=== PATIENT | female | born 1995 | race Caucasian/White ===

== ENCOUNTER 2025-06-29 20:29 | Emergency (ER) | payer OTHER, SELFPAY ==
--- OUTSIDE RECORDS SUMMARY | 2024-05-31 05:15 | XMS_ITS ---
Author Organization [facility] Address [address] [place] [address] Care Team Providers Care Police Lieutenant Patrol Name Role Phone Dominga SIEGEL, Hermila Primary Care Provider Un available Alley Preciado Unavailable [phone] Encounters Encounter Location Date Provider Diagnosis [address] [address] 05/31/2024 Alley Preciado Plan Of Treatment No Information Progress Notes * Modesta MAZA SDOB:1995 (29 yo F)Acc No.[id number]:05/31/2024 Progress Notes Patient: Modesta BEAVER Provider: Yareli Preciado DPM :1995 A ge:28 Y S ex:Female Date:05/31/2024 Address:[address] [place], [place] [id number] Pcp:Hermila Orr MD Subjective: * Chief Complaints: * * Medical History: Objective: * Vitals: Assessment: Plan: * Treatment: * Images: * The named appointment provid er may or may not be the originator of this progress note, and it is not deemed complete until electronically signed by the appointment provider. Sign off status: Pending * Provider: Yareli Preciado DPM Date: 07/31/2023 Generated for Leonardai kalee/Fazoltang/eTransmitting on: 08/31/2024 02:34 AM EST
--- OUTSIDE RECORDS SUMMARY | 2024-11-15 06:30 | XMS_ITS ---
Author Organization [facility] [address] Address [address] [place] [address] Care Team Providers Care Director Auto Name Role Phone Hermila Orr Primary Care Provider DENISE Landin Unavailable [phone] Encounters Encounter Location Date Provider Diagnosis [facility] [address] [address] 11/15/2024 DENISE SADLER Plan Of Treatment No Information Progress Notes * RAULITO GARCIADOB:1995 (29 yo F)Acc No.[id number]:11/15/2024 Patient: RAULITO BEAVER Provider: Brunilda SADLER :1995 A ge:29 Y S ex:Female Date:11/15/2024 Address:[address] [place], [place] [id number] Pcp:Hermila Orr * Electronic signature of BRAINA SADLER PA-C, [id number] on 06/30/2025 at 02:34 AM EST Sign off status: Pending * Provider: Brunilda SADLER Date: 0 11/15/2024 Generated for Leonardai kalee/Fahilda/eTransmitting on: 1 08/31/2024 02:34 AM EST
--- OUTSIDE RECORDS SUMMARY | 2024-11-22 06:30 | XMS_ITS ---
Author Organization [facility] [address] Address [address] [place] [address] Care Team Providers Care Educational Psychology Professor Name Role Phone Hermila Orr Primary Care Provider DENISE Landin Unavailable [phone] Encounters Encounter Location Date Provider Diagnosis [facility] [address] [address] 11/22/2024 DENISE SADLER Plan Of Treatment No Information Progress Notes * RAULITO GARCIADOB:1995 (29 yo F)Acc No.[id number]:11/22/2024 Patient: RAULITO BEAVER Provider: Brunilda SADLER :1995 A ge:29 Y S ex:Female Date:11/22/2024 Address:[address] [place], [place] [id number] Pcp:Hermila Orr * Electronic signature of BRIANA SADLER PA-C, [id number] on 06/30/2025 at 02:35 AM EST Sign off status: Pending * Provider: Brunilda SADLER Date: 0 11/22/2024 Generated for Aris granda/Ramón/eTransmitting on: 1 08/31/2024 02:35 AM EST
--- NOTE | ~2025-06-29 | XR_ITS ---
CLINICAL HISTORY: chest pain 2 view chest x-ray Comparison: None provided Findings: The lungs are clear. Heart size is normal. No acute fracture. IMPRESSION: 1. No acute findings. This document has been electronically signed by: Shady Curiel MD on 06/29/2025 21:21:30
--- NOTE | 2025-06-29 20:30 | ECG_ITS ---
Test Reason : chest pain Blood Pressure : */* mmHG Vent. Rate : 98 BPM Atrial Rate : 98 BPM P-R Int : 170 ms QRS Dur : 88 ms QT Int : 358 ms P-R-T Axes : 50 19 52 degrees QTcB Int : 457 ms Normal sinus rhythm Cannot rule out Anterior infarct , age undetermined Abnormal ECG No previous ECGs available Referred By: Generic ED Physician Electronically Signed By: Emmett Childress
[2025-06-29 20:44] VITALS: BP 132/82; PULSE 94; RESP 16; TEMP 36.8; O2SAT 97; BMI 43.1
--- NOTE | 2025-06-29 20:48 | ED.GENADULT ---
HPI - General Adult General Chief complaint: Chest Pain Stated complaint: chest pain Time Seen by Provider: 06/30/25 02:25 Source: patient Mode of arrival: ambulatory Limitations: no limitations History of Present Illness ED Provider: Dr. 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 The pain is described as a burning sensation that begins in the chest, radiates to the upper abdomen and occasionally to the back, reminiscent of prior GERD flares but ?feels different? and more intense. Symptoms have progressively worsened over the past couple of weeks. - Associated symptoms: nausea (without emesis), dry non-productive cough, sensation of throat ?stuck? or airway closing, intermittent choking episodes that trigger asthma symptoms, generalized malaise. - Denies: vomiting, fever, sputum production. - Triggers/aggravating factors: oral intake (cannot tolerate food without triggering symptoms), stress, recent oral prednisone course started today for asthma. - Relieving factors: temporary relief with GI cocktail in prior ED visit; minimal/no relief with current home antacid regimen (famotidine, sucralfate, omeprazole). - Medication history: Long-standing use of famotidine, sucralfate, and omeprazole; discontinued GLP-1 agonist due to worsening reflux; started prednisone today; on steroid inhalers for asthma control. - Recent care: ED visit at [facility] ?a few days ago? (GI cocktail, no improvement). GI follow-up scheduled for August; patient reports urgency due to daily choking episodes. - Social history: Remote smoking history (?have been a smoker, not really a smoker? currently). Denies NSAID use for pain. Related Data Previous Rx's ?Medication ?Instructions ?Recorded cyclobenzaprine 10 mg tablet 10 mg PO TID #10 tabs 06/30/25 esomeprazole magnesium 20 mg 20 mg PO DAILY 30 days #30 caps 06/30/25 capsule,delayed release (Nexium) pantoprazole 20 mg tablet,delayed 20 mg PO DAILY #30 tabs 06/30/25 release (Protonix) Allergies Allergy/AdvReac Type Severity Reaction Status Date / Time amoxicillin Allergy Rash Verified 06/29/25 20:49 Review of Systems Review of Systems: as per HPI, full review of systems performed and negative but for the above mentioned pertinent positives and negatives. [facility] Social History Social History Advance Directives: No Advance Directives Information Provided: No Do you have a plan to hurt others: No Plan Physical Exam ED Exam Exam: GENERAL: Ill-Appearing, appears uncomfortable. SKIN: Normal skin color for ethnicity, warm, dry, no rashes noted. HEENT:? Normocephalic, atraumatic, no stridor, dry mucous membranes, dentition intact, EOMI. NECK: Soft, supple, full ROM, midline structures nontender, no step-offs, no deformities, no lymphadenopathy. CHEST: Heart regular rhythm, no murmurs, symmetric chest rise and fall. PULMONARY: Clear to auscultation bilaterally, diminished at the bases, no labored breathing, no wheezes/rhales/rhonchi. ABDOMINAL: Soft, nondistended, epigastric tenderness to palpation without rebound or guarding, positive bowel sounds in all quadrants. : Deferred. MUSCULOSKELETAL: Normal tone, full range of motion, no deformities, no peripheral edema. NEURO: Alert and oriented x3, CN II through XII intact, equal strength and sensation bilateral upper and lower extremities, no focal neurologic deficits.? PSYCHIATRIC: Flat affect, fluid speech, good eye contact and appropriate demeanor. Vital Signs: Vital Signs - 24 hr 06/29/25 20:44 06/30/25 02:37 Temperature 98.2 F 97.6 F Pulse Rate 94 70 Respiratory Rate 16 16 Blood Pressure 132/82 112/70 Pulse Oximetry 97 97 Oxygen Delivery Method Room Air Room Air BMI result Body Mass Index 43.1 Course Course Course Narrative: This is a Rapid Medical Examination (RME) performed by Krupa Will PA-C in triage. Full HPI, ROS, assessment and treatment plan per primary provider in the Main ED. Hx: 29 yo F hx GERD here for eval of worsening acid reflux with chest pain x3 days. on multiple GI meds. states her acid reflux becomes so bad it triggers her asthma and she feels like she cannot breath. feels as though an elephant is sitting on her chest. seen at ED last week - given GI cocktail without improvement. seen at today - advised to come here. Plan: labs, EKG, cxr Medications Administered Discontinued Medications Generic Name Dose Route Start Last Admin Trade Name Annel PRN Reason Stop Dose Admin Al Hydroxide/Mg Hydroxide 30 ml 06/30/25 03:42 06/30/25 03:58 Magnesium Hydrox/Alum Hydrox 30 Ml Oral.Susp PO 06/30/25 03:43 30 ml ONCE ONE Administration Lidocaine HCl 15 ml 06/30/25 03:42 06/30/25 03:58 Lidocaine Hcl Viscous 2 % 15 Ml Solution MUCOUS MEM 06/30/25 03:43 15 ml ONCE ONE Administration Medical Decision Making Medical Decision Making [facility] Narrative: 29-year-old female with complex history of GERD, asthma, and multiple autoimmune disorders presenting with refractory epigastric/chest burning and asthma symptoms likely triggered by uncontrolled acid reflux. Work-up today reassuring for no acute cardiopulmonary emergency (normal vitals, labs, EKG; lungs clear). The primary issues and plans are outlined below. Problem #1: GERD exacerbation / epigastric pain Assessment: One-week history of severe burning epigastric/chest pain refractory to long-standing famotidine, omeprazole, and sucralfate. Symptoms worsened by recent oral steroid. Prior EGD 6 months ago; considering need for repeat endoscopy given progressive symptoms. Plan: - Administer single dose IV/PO Protonix in ED (formulary dependent). - Discontinue omeprazole; prescribe Protonix (pantoprazole) 40 mg PO daily as outpatient trial. - Continue famotidine and sucralfate; reinforce dosing schedule (sucralfate up to 4?/day before meals, separate by >= h from other antacids). - OTC options: trial Maalox or Pepto Bismol for breakthrough symptoms; caution not to take concurrently with sucralfate. - Avoid NSAIDs. - Discussed role of stress; encouraged stress-reduction strategies/therapy. - Follow-up: maintain scheduled GI appointment ([facility] in August); advised to seek sooner evaluation if worsening, vomiting blood, melena, or inability to tolerate PO. Problem #2: Asthma / shortness of breath Assessment: Asthma symptoms currently mild; triggered by reflux. Lungs clear; patient denies active exacerbation. Plan: - Hold oral prednisone started today; benefits outweighed by exacerbation of GERD. - Continue inhaled steroid and other home asthma medications as previously prescribed. - Monitor respiratory status; return for worsening dyspnea, wheeze, or peak flow decline. Problem #3: Medication counseling / polypharmacy - Reviewed timing and separation of antacids and PPIs with patient for optimal efficacy. - Discussed risks of prolonged steroid use and NSAID use on gastric mucosa. - Provided prescription for short-acting muscle relaxer for nocturnal discomfort (patient to avoid use until home due to drowsiness and self-transport tonight). 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 - Encouraged continued routine outpatient follow-up with primary care and specialists. Disposition - Stable vital signs. - Discharged home with return precautions for chest pain, hematemesis, melena, progressive dyspnea, or uncontrolled pain. - Discharge prescriptions sent to [facility]. Differential Diagnosis Differential Diagnoses: The differential diagnosis associated with the presentation includes (as above) Admission/Observation Consideration of admission/observation: Escalation of care including admission/observation considered Lab Data MDM Lab Attestation statement: I reviewed the patient's lab results. 06/29/25 21:33 06/29/25 21:33 Labs: Lab Results 06/29/25 06/30/25 Range/Units 21:33 02:37 WBC 8.5 (4.8-10.8) X10*3/uL RBC 4.89 (4.20-5.50) X10*6/uL Hgb 13.3 (12.0-16.0) g/dl Hct 40.3 (37.0-47.0) % MCV 82.4 (80.0-98.0) fL MCH 27.2 (27.0-33.0) pg MCHC 33.0 (31.0-35.0) g/dl RDW 12.7 (11.0-16.0) % Plt Count 295 (160-400) X10*3/uL MPV 9.8 (9.4-12.3) fL Immature Gran % (Auto) 0.5 H (0.0-0.4) % Neut % (Auto) 84.9 H (45-73) % Lymph % (Auto) 13.1 L (20-40) % [place] % (Auto) 1.1 L (2-11) % Eos % (Auto) 0.0 (0-4) % Baso % (Auto) 0.4 (0-2) % Lymph # (Auto) 1.1 L (1.2-4.9) X10*3/uL [place] # (Auto) 0.1 (0.1-1.2) X10*3/uL Eos # (Auto) 0.0 (0.0-0.4) X10*3/uL Baso # (Auto) 0.0 (0.0-0.2) X10*3/uL Abs Immat Gran (auto) 0.04 H (0.00-0.03) X10*3/uL Absolute Neuts (auto) 7.3 (2.0-8.3) x10*3/uL Absolute Nucleated RBC 0.000 (0.0-0.012) X10*3/uL Nucleated RBC % (auto) 0.0 (0.0-0.2) /100WBC Sodium 137 (135-145) mmol/L Potassium 3.8 (3.3-5.1) mmol/L Chloride 108 (96-108) mmol/L Carbon Dioxide 21 L (22-29) mmol/L Anion Gap 12 (12-20) BUN 9 (9-16) mg/dL Creatinine 0.68 (0.5-1.4) mg/dL Estim Creat Clear Calc 177.0 Estimated GFR > 60 Random Glucose 118 H (60-115) mg/dL Calcium 9.7 (8.4-10.2) mg/dL Magnesium 2.0 (1.6-2.6) mg/dL Total Bilirubin 0.3 (0.0-1.0) mg/dL AST 25 (5-31) U/L ALT 44 H (0-31) U/L Alkaline Phosphatase 74 (39-117) U/L Troponin I High Sens < 2.7 (<3.5-17.0) ng/L Total Protein 7.9 (6.5-8.0) g/dL Albumin 4.8 (3.5-5.0) g/dL Lipase 14 (8-78) U/L Beta HCG, Quant < 2 mIU/mL Influenza Type A (PCR) NEGATIVE (Negative) Influenza Type B (PCR) NEGATIVE (Negative) RSV RNA Qual (PCR) NEGATIVE (Negative) SARS-CoV-2 RNA (RT-PCR) NEGATIVE (Negative) Independent Interpretation I performed an independent interpretation of an: Plain X-Ray Interpretation: My independent interpretation of the chest x-ray reveals no consolidations, pulmonary edema, pleural effusion, pneumothorax, obvious bony abnormalities. Radiology Impression Discussion of test interpretation with radiology: I have reviewed the radiologist's reading. Prescription Management I considered prescription management with: Pain Medication and Other (antacids) Chronic Conditions Patient?s care impacted by: Other (POTS, asthma) Discharge Plan Discharge Clinical Impression: GERD with esophagitis, Acute epigastric pain Patient Disposition: Home, Self-Care Additional Instructions: Your acid reflux may be contributing to your worsening asthma symptoms. Stop taking omeprazole and start taking Protonix (pantoprazole). Stop taking famotidine (Pepcid) and start taking esomeprazole (Nexium). Alternatively, you may try taking a muscle relaxer to see if this helps with your abdominal pain. Follow up with the qa developer as soon as possible. Return to the emergency department with any new or worsening symptoms including: Worsening chest pain despite medications, fevers greater than 100 degrees, cough productive of green or yellow sputum, any new symptom that concerns you. Call 911 with any medical emergency. Prescriptions: New cyclobenzaprine 10 mg tablet 10 mg PO TID Qty: 10 0RF pantoprazole [Protonix] 20 mg tablet,delayed release (DR/EC) 20 mg PO DAILY Qty: 30 0RF esomeprazole magnesium [Nexium] 20 mg capsule,delayed release(DR/EC) 20 mg PO DAILY 30 Days Qty: 30 0RF Interventions: ED Discharge Assessment Last Done: 06/30/25 04:05 Discharge Date/Time: 06/30/25 04:05 Print Language: [place] Citizen
[2025-06-29 21:38] LABS: MANUAL DIFF FLAG NO
[2025-06-29 21:39] LABS: Hematocrit 40.3 % (37.0-47.0); Hemoglobin 13.3 g/dl (12.0-16.0); Imm Gran Abs Auto 0.04 X10*3/uL (0.00-0.03); Imm Gran Pct Auto 0.5 % (0.0-0.4); Lymphocytes Absolute Auto 1.1 X10*3/uL (1.2-4.9); Mean Corpuscular HGB Conc 33.0 g/dl (31.0-35.0); Mean Corpuscular Hemoglobin 27.2 pg (27.0-33.0); Mean Corpuscular Volume 82.4 fL (80.0-98.0); NRBC Abs Auto 0.000 X10*3/uL (0.0-0.012); NRBC Pct Auto 0.0 /100WBC (0.0-0.2); Platelet Count 295 X10*3/uL (160-400); Red Blood Count 4.89 X10*6/uL (4.20-5.50); White Blood Count 8.5 X10*3/uL (4.8-10.8)
[2025-06-29 21:59] LABS: Alanine Aminotransferase 44 U/L (0-31); Albumin Level 4.8 g/dL (3.5-5.0); Alkaline Phosphatase 74 U/L (39-117); Anion Gap 12 (12-20); Aspartate Amino Transferase 25 U/L (5-31); Blood Urea Nitrogen 9 mg/dL (9-16); Calcium 9.7 mg/dL (8.4-10.2); Carbon Dioxide 21 mmol/L (22-29); Chloride 108 mmol/L (96-108); Creatinine Clr Calc Pharmacy 177.0; Estimated Glomerular Filt Rate > 60; Lipase 14 U/L (8-78); Magnesium 2.0 mg/dL (1.6-2.6); Potassium 3.8 mmol/L (3.3-5.1); Sodium 137 mmol/L (135-145); Total Protein 7.9 g/dL (6.5-8.0)
[2025-06-29 22:01] LABS: Troponin-I High Sensitivity < 2.7 ng/L (<3.5-17.0)
--- OUTSIDE RECORDS SUMMARY | 2025-06-30 02:35 | XMS_ITS ---
[facility] Name [facility] Organization Unknown Results Test Name/Text Value Interpretation Date Range Source D-DIMER 0.27 g /mL Normal 06/10/2024 0 - 0.48 [facility] High sensitivity Troponin I 3.0 Ng/L Normal 06/10/2024 0 - 15 [facility] K 3.9 mEq/L Normal 06/10/2024 3.5 - 5.1 [facility] NA 139.0 mEq/L Normal 06/10/2024 135 - 145 [facility] Glomerular Filtration Rate 99.0 Normal 06/10/2024 [facility] ANION GAP 13.0 mEq/L Normal 06/10/2024 7 - 16 [facility] CA 9.5 mg/dL Normal 06/10/2024 8.5 - 10.3 [facility] GLUCOSE 100.0 mg/dL Normal 06/10/2024 70 - 100 [facility] CREATININE 0.82 mg/dL Normal 06/10/2024 0.6 - 1.1 [facility] BUN 12.0 mg/dL Normal 06/10/2024 7 - 25 [facility] CO2 23.0 mEq/L Normal 06/10/2024 22 - 32 [facility] CHLORIDE 107.0 mEq/L Normal 06/10/2024 95 - 111 [facility] IMMATURE GRANULOCYTE % 0.3 x10E9 Normal 06/10/2024 0 - 0. 6 [facility] BASO# 0.06 x10E9 Normal 06/10/2024 0 - 0.1 [facility] LYMPH % 38.2 % Normal 06/10/2024 11 - 49 [facility] WBC 6.54 x10E9 Normal 06/10/2024 3.2 - 10.6 [facility] RDW 13.1 % Normal 06/10/2024 12 - 15.7 [facility] NRBC % 0.0 /100W Normal 06/10/2024 0 - 0.1 [facility] HCT 39.1 % Normal 06/10/2024 34.3 - 46.6 [facility] MCH 27.3 pg Normal 06/10/2024 26.5 - 32.6 [facility] NEUT % 48.3 % Normal 06/10/2024 38 - 80 [facility] MONO % 8.0 % Normal 06/10/2024 4 - 12 [facility] BASO% 0.9 % Normal 06/10/2024 0 - 2 [facility] HGB 12.9 g/dL Normal 06/10/2024 12.1 - 15.9 [facility] MPV 10.4 fL Normal 06/10/2024 9 - 12.4 [facility] RBC 4.72 x10E1 Normal 06/10/2024 3.88 - 6.07 [facility] MONO# 0.52 x10E9 Normal 06/10/2024 0.1 - 1 [facility] EOS % 4.3 % Normal 06/10/2024 0 - 6.1 [facility] ABSOLUTE IMMATURE GRANULOCYTE 0.02 x10E9 Normal 06/10/2024 0 - 0.05 [facility] NEUT# 3.16 x10E9 Normal 06/10/2024 1.3 - 7.1 [facility] MCV 82.8 fL Normal 06/10/2024 77.8 - 94 [facility] NRBC # 0.0 x10E9 Normal 06/10/2024 0 - 1 [facility] EOS# 0.28 x10E9 Normal 06/10/2024 0 - 0.4 [facility] PLT 268.0 x10E9 Normal 06/10/2024 177 - 406 [facility] LYMPH# 2.5 x10E9 Normal 06/10/2024 0.9 - 3.2 [facility] MCHC 33.0 g/dL Normal 06/10/2024 31.8 - 34.8 [facility] Assessment and Plan ID Update Date Source Alert Text [employer]-[id number] 09/14/2020 [employer] COVID Vaccination: This patient has received the MOD, COVID-19, mRNA, LNP-S, PF, 0.5mL vaccination on 09/14/2020 with lot number [id number] at [facility]. Encounters Encounter Type Encounter Reason Primary Diagnosis Location Date Emergency LEFT SIDE PAIN, SOB SHORTNESS OF BREATH H [facility] 06/09/2024 Care Team Organization Name Specialty Phone Email Start Date End Da te [facility] 07/02/2024 025 [facility] 06/1107/12/2024 [facility] 06/10 [facility] 06/18/2022 024 [facility] 05/24/2022 03/04/20 24 [facility] 05/24/2022 03/04/20 24 [facility] 02/27/2012/02/2020 [facility] 12/02/2020
--- OUTSIDE RECORDS SUMMARY | 2025-06-30 02:35 | XMS_ITS | Continuity of Care Document ---
Author Organization [facility] Address [address] [place], [place] Phone [phone] Care Team Providers Care Stemhole Borer And Topper Name Role Phone Hermila Orr MD Care Team Information Re ceiver Unavailable KATHYA SANTOS M.D. Care Team Information Rec eiver Unavailable Hermila Orr MD Primary Care Physician U navailable Problems Active Problems Provider Date Pure hypercholesterolemia Luis Eduardo [facility] Onset: 09/16/2024 Prediabetes Kathya Santos M.D. Onset: 0 09/16/2024 Social History Type Date Description Comments Sex Female Sex Unknown Allergies and adverse reactions Active Allergies Criticality Reaction Severity Comments Date Amoxicillin Unable to assess criticality 09/16/2024 Medications Active Medications SIG Qnty Indications Order ing Provider Date Zepbound2.5mg/0.5ML Solution Auto-Inject inject 2.5mg subcutaneously once a week 2ml Kathya Santos M.D. 01/01/2025 Pnwsocck8mu/0.5ML Solution Auto-Inject administer 5 mg under the skin 1 time a week 2ml R73.03 Kathya Santos M.D. 12/19/2024 Albuterol Sulfate ABC601(90Base) mcg/Act Aerosol Inhale 2 Puffs Every 4 Hours as Needed For Wheezing, Cough, Shortness Of Breath Mervat Lizama MD Optichamber DiamondMisc Is With Inhaler Mervat Lizama MD 0 Metformin HCL [id number] Tablets ER 24HR Take 2 Tablets By Mouth Every Day Hermila Orr MD Azelastine HCL (Nasal)137mcg/Axtell Solution Axtell 2 Sprays Into Each Nostril Every Day as Needed For Allergies Hermila Orr MD Fluticasone Uhanvvsfod35fzl/Act Suspension Instill 2 Sprays Into Each Nostril Once Daily, Shake Well Hermila Orr MD Escitalopram Esnjyuy31wh Tablets 1/d +5mg Hermila Orr MD Clonazepam0.5mg Tablets prn Hermila Orr MD Escitalopram Llhnipc1ia Tablets 1/d + 20mg Hermila Orr MD Buspirone ARI46po Tablets 1 tab by mouth every day Hermila Orr MD Montelukast Qslamd32vq Tablets 1 by mouth every day 90tabs Hermila Chang MD History Medications Zepbound2.5mg/0.5ML Solution Auto-Inject inject 2.5mg subcutaneously once a week 2ml R73.03 Kathya Santos M.D. 09/16/2024 - 12/19/2024 Gtqkwedrwc4ke Tablets Rebekah Tripp, MSN, INSURANCE AND BENEFITS CLERK-C - 09/16/2024 Sulfamethoxazole/Trimetho prim [id number] Tablets Take 1 Tablet By Mouth Twice A Day For 10 Days Unknown - 09/16/2024 Doxycycline Xguzprh570sa Tablets Mervat Lizama MD - 09/16/2024 Jcuhasttxx11zl Tablets Mervat Rees MD - 09/16/2024 Gggbxmkuyeno693bn Tablets Take 2 Tablets By Mouth Today, Then Take 1 Tablet Daily For 4 Days as Directed Unknown - 09/16/2024 Ahjwxdqpwql6ga Tablets Dispers Unknown - 09/16/2024 Pulmicort Jaslpuygp385ola/Act Aerosol Inhale 1 puff By Mouth Twice A Day Unknown - 09/16/2024 Doxycycline Lbussaiokpg871an Capsules Unknown - 09/16/2024
--- OUTSIDE RECORDS SUMMARY | 2025-06-30 02:35 | XMS_ITS | Patient Health Record ---
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 Name Role Phone Orr, Hermila Primary Care Provider DENISE Landin Unavailable [phone] Allergies Allergen (clinical drug ingredient) Drug/Non Drug Allergy documented on EMR Reaction Allergy Type Onset Date Status amoxicillin Amoxicillin Unknown Drug Allergy Act magui Reason For Referral No Information Medications Medication SIG (Take, Route, Frequency, Duration) Notes Start Date End Date Status Montelukast Sodium 10 MG Tablet TAKE 1 TABLET BY MOUTH EVERY EVENING Oral; Duration: 90 Days Active Methylphenidate HCl ER (OSM) 18 MG Tablet Extended Release Oral; Duration: 30 Days Acti ve Escitalopram Oxalate 5 MG Tablet TAKE 1 TABLET BY MOUTH EVERY DAY WITH 20MG TABLET Oral; Duration: 90 Days Active clonazePAM 0.5 MG Tablet Oral; Duration: 28 Days Active Fluticasone Propionate 50 MCG/ACT Suspension INSTILL 2 SPRAYS INTO EACH NOSTRIL ONCE DAILY, SHAKE WELL Nasal; Duration: 30 Days Active Zepbound 2.5 MG/0.5ML Solution Auto-injector Inject 2.5 mg Subcutaneous weekly; Duration: 28 days 10/18/2024 Active metFORMIN HCl ER 500 MG Tablet Extended Release 24 Hour Oral; Duration: 90 Days Acti ve Azelastine HCl 137 MCG/SPRAY Solution SPRAY 2 SPRAYS INTO EACH NOSTRIL EVERY DAY NEEDED FOR ALLERGIES Nasal; Duration: 30 Days Active busPIRone HCl 15 MG Tablet Oral; Duration: 30 Days Active Albuterol Sulfate HFA 108 (90 Base) MCG/ACT Aerosol Solution INHALE 2 PUFFS EVERY 4 HOURS NEEDED FOR WHEEZING, COUGH, SHORTNESS OF BREATH Inhalation; Duration: 16 Days Active Social History Section Notes: marijuana user Problems Problem Type SNOMED Code ICD Code Onset Dates Problem Status W/U Status Risk Notes Problem Seasonal allergy (255371800) Seasonal allergies (J30.2) Active confirmed Problem Mixed hyperlipidemia (046538848) Moderate mixed hyperlipidemia not requiring statin therapy (E78.2) Active confirmed Problem Mild intermittent asthma (156832032) Mild intermittent asthma without complication (J45.20) Active confirmed Problem Polycystic ovary syndrome (disorder) (191237476) PCOS (polycystic ovarian syndrome) (E28.2) Active confirmed Problem Adult-onset obesity (482023660) Adult-onset obesity (E66.9) Active confirmed Problem Body mass index 40+ - severely obese (310525518) BMI 45.0-49.9, adult (Z68.42) Active confirmed Problem Mixed anxiety and depressive disorder (311177054) Depression with anxiety (F41.8) Active confirmed Problem Postural orthostatic tachycardia syndrome (disorder) (581271020) POTS (postural orthostatic tachycardia syndrome) (G90.A) Active confirmed Problem Obstructive sleep apnea syndrome (46952338) SILVER on CPAP (G47.33) Active confirmed Vital Signs Heart Rate 87 /min 10/18/2024 Oximetry 98 % 10/18/2024 Blood pressure diastolic 80 mm Hg 10/18/2024 Height 67 in 10/18/2024 Blood pressure systolic 116 mm Hg 10/18/2024 Weight 317 lbs 10/18/2024 BMI 49.64 kg/m2 10/18/2024 Encounters Encounter Location Date Provider Diagnosis [facility] [address] 10/18/2024 DENISE SADLER Adult-onset obesity E66.9 ; BMI 45.0-49.9, adult Z68.42 ; SILVER on CPAP G47.33 ; Prediabetes R73.03 ; PCOS (polycystic ovarian syndrome) E28.2 ; Moderate mixed hyperlipidemia not requiring statin therapy E78.2 ; Depression with anxiety F41.8 ; POTS (postural orthostatic tachycardia syndrome) G90.A ; Mild intermittent asthma without complication J45.20 and Seasonal allergies J30.2 [facility] [address] [id number] 10/18/2024 DENISE SADLER [facility] [address] 10/18/2024 DENISE SADLER [facility] [address] [place] [id number] 10/16/2024 Hermila Orr Assessments Encounter Date Diagnosis (ICD Code) Assessment Notes Treatment Notes Treatment Clinical Notes Section Notes 10/18/2024 Adult-onset obesity (ICD-10 - E66.9) Modesta is a 29-year-old female with history of obesity who presents to the office today for weight management consult. Medical history, labs, allergies, medications, and social history reviewed with the patient. Provided education on healthy diet and lifestyle which includes high-protein, low carbohydrate, high-fiber, and a variety of fruits and vegetables. Patient encouraged to exercise with emphasis on resistance training minimum 3 times per week to maintain muscle mass and cardio to burn fat. All patient questions answered. Patient will follow-up in 2 to 4 weeks for weight management. 10/18/2024: Weight 317 pounds, BMI 49.64. SECA scan completed today and interpreted with the patient. Patient reports several factors contributing to weight gain including increased stress/anxiety, family history of obesity, and PCOS. Has trialed weight watchers as well as Trulicity. Has been implementing increased walking as well as working in physical therapy over the previous several months to increase her strength. With concomitant history of SILVER on CPAP among other comorbidities she is a good candidate for Zepbound. We discussed proper use of the medication and potential side effects including but not limited to nausea, constipation, heartburn, or abdominal pain. Patient has no contraindications to GLP-1's. Advised that the medication requires a prior authorization and she will follow-up in office in 4 weeks. # PCOS: Reports concomitant history of prediabetes with recent hemoglobin A1c of 5.6%. Aware that PCOS may increase risk of insulin resistance. Continue metformin 500 mg 1 tablet daily. Continue follow-up with gynecology. # Depression/anxiety: Continue escitalopram 5 mg 1 tablet daily. Continue buspirone 15 mg daily. Continue methylphenidate 18 mg daily. Continue clonazepam 0.5 mg daily as needed for breakthrough anxiety. Will continue to monitor. # Asthma: Asymptomatic in office. Continue montelukast 10 mg once daily. Continue albuterol 2 puffs every 4 hours as needed for wheezing, cough, or shortness of breath. # SILVER: Continue nightly CPAP. # Seasonal allergies: Continue fluticasone 2 sprays in each nostril daily. Continue azelastine 2 sprays in each nostril daily as needed. # POTS: Continue regular hydration as well as supplementation with salt. Please follow-up with PCP. Blood pressure stable in office today. Patient was reassured and welcomed to the practice. We discussed that we stress a hollistic medical approach with emphasis on lifestyle modification. Patient was informed that a healthy lifestyle with exercise and good eating habits can help reduce their risk of medical complications. Patient is explained that obesity increases their risk of diabetes, cardiovascular disease, or organ damage. We spent a lot of time discussing the relationship between food, exercise, sleep, mental health and obesity. Patient was counseled on the importance EATING local, organic food when possible. Patient was educated on clean 15 and dirty dozen. I provided information about reading books called The Food Rules by Blaine Galvan and Eat Fat Get Lean by Dr Louie Patel. Self education is important in the journey for weight management. Patient was offered diagnostic testing/ SECA scale. We want to measure visceral adiposity, advanced body composition, adverse lipids, fatty acid balance, risk for heart disease and atherosclerosis, markers of inflammation and genetic susceptibility. Patient was counseled on weight management and was advised to lose weight using A. Meal Replacement Products Patient was educated on the replacement products called optifast. This is a good way of taking fixed amount of calories. It has been shown in studies to be ineffective weight management tool. This however has to be coupled with lifestyle intervention as well as laboratory data and EKG monitoring. It is impossible to know how a person will tolerate complete meal replacement. The side effects of meal replacement and weight loss could include syncopal attacks, dizziness, gallstones, potential cholecystectomy, possible heart attack and even . The benefits of meal replacement would be potential weight loss but no guarantees can be made. Meal replacement products are not covered by insurance. Once the patient has bought these products we cannot return them B. Lifestyle management which includes several strategies as below 1. Eat a low carbohydrate good fat good protein diet. Eliminate refined carbohydrates from the diet. Limit sugared beverages. Eat local organic when possible. Cook your own meals. Read food labels. Focus on healthy snacks. Portion control and food with low glycemic index 2. Exercise regularly. Try to get at least 6000 steps a day. Use a predominant to track activity level. Consider using apps like 7 minute excercise, myfitnesspal, lose it, stick as needed for self-monitoring and weight management. Consider group exercises. Consider hiring a epic trainer. Regular exercise is hayes to sustainable health and prevents as a buffer against weight regain 3. Sleep is most important for healing. Try to sleep at least 6-8 hours a night. A good quality sleep needs a sleep ritual with ideal room temperature of around 68. It might help to take a shower and have no electronics in the room and sleep in a very dark room without artificial light. Start sleep routine and get up early in the morning and go to bed on time. 4. Make a social connection. Surround yourself with positive people with positive energy. Connect with friends and family. 5. Get into the habit of meditating and mindfulness while doing everything. 6. Go outside and connect with nature. C. Prescription medications Patient was educated on the use of prescription medications for medical weight loss. This is a growing list and includes phentermine, Topamax,Qsymia, contrave, belviq and saxenda, wegovy etc. All prescription medications could have side effects including but not limited to kidney stones, seizure disorder cardiac arrhythmias heart attack pancreatitis, GI effects, Etc. Patient was encouraged to read the prescription insert and have coaching with their pharmacist and make an informed decision about taking medication and know that these medications are being prescribed with good intentions and we do not know how a patient would react to the medication. Some medications are FDA approved for weight loss and there is also off label use depending on patient's inability to afford medications in an attempt to lose weight D. Behavioral counseling was done to establish a relationship between food and an mood. Patient was provided information about local counseling and psychiatry and Dr Sumner at [facility]. We would like to cover regular topics and build on low glycemic eating exercise mindful eating, using yoga and meditation along with deep breathing and connecting with friends and family. E. MASS PAT reviewed, Patient's current medications were reviewed and opinion was given on medication that can cause weight gain and can be substituted F. Patient was assessed for risk with obesity including and not limiting to atherosclerosis heart disease stroke kidney disease, restrictive lung disease, irritable bowel syndrome and overall mortality. Risk of developing prediabetes diabetes and metabolic syndrome was discussed G. Therapeutic plan: We have decided to make therapeutic plan which would include choosing wisely on calories restricting portion getting active, tracking weight, getting good quality sleep and working on time management H. Patient will follow up in 4 weeks for weight management Total time spent today was 60 minutes of which greater than 50% was spent on coordinating and counseling After consultation and careful review of medical history, this patient would benefit from Zepbound based off of the following criteria met: Patient is over the age of 18, has a BMI of 49.64. Additional comorbidities include hyperlipidemia, PCOS, prediabetes, SILVER on CPAP, Mary Lou's, asthma, POTS, seasonal allergies, and anxiety/depression. Patient has trialed other methods of weight loss including improving diet, exercise without success over three months. This medication is prescribed by or in consultation with a board certified obesity and weight management physician (Dr. Kyler Rollins or Dr. Remy Rollins). Case discussed with collaborating physician Valentina Rollins who reviewed the assessment and plan. Chart, medications, labs, vital signs reviewed. Dictation was accomplished with the use of [employer] voice recognition software, prone to medical misidentifications and grammatical errors. This is unintentional and the practitioner does try to identify and correct these, but some could still be present. Please do not hesitate to contact practitioner for clarification. All questions answered to patients satisfaction. Patient verbalized understanding of diagnosis and treatments explained. To call sooner prior to next visit it any questions/concerns arise. 10/18/2024 BMI 45.0-49.9, adult (ICD-10 - Z68.42) Modesta is a 29-year-old female with history of obesity who presents to the office today for weight management consult. Medical history, labs, allergies, medications, and social history reviewed with the patient. Provided education on healthy diet and lifestyle which includes high-protein, low carbohydrate, high-fiber, and a variety of fruits and vegetables. Patient encouraged to exercise with emphasis on resistance training minimum 3 times per week to maintain muscle mass and cardio to burn fat. All patient questions answered. Patient will follow-up in 2 to 4 weeks for weight management. 10/18/2024: Weight 317 pounds, BMI 49.64. SECA scan completed today and interpreted with the patient. Patient reports several factors contributing to weight gain including increased stress/anxiety, family history of obesity, and PCOS. Has trialed weight watchers as well as Trulicity. Has been implementing increased walking as well as working in physical therapy over the previous several months to increase her strength. With concomitant history of SILVER on CPAP among other comorbidities she is a good candidate for Zepbound. We discussed proper use of the medication and potential side effects including but not limited to nausea, constipation, heartburn, or abdominal pain. Patient has no contraindications to GLP-1's. Advised that the medication requires a prior authorization and she will follow-up in office in 4 weeks. # PCOS: Reports concomitant history of prediabetes with recent hemoglobin A1c of 5.6%. Aware that PCOS may increase risk of insulin resistance. Continue metformin 500 mg 1 tablet daily. Continue follow-up with gynecology. # Depression/anxiety: Continue escitalopram 5 mg 1 tablet daily. Continue buspirone 15 mg daily. Continue methylphenidate 18 mg daily. Continue clonazepam 0.5 mg daily as needed for breakthrough anxiety. Will continue to monitor. # Asthma: Asymptomatic in office. Continue montelukast 10 mg once daily. Continue albuterol 2 puffs every 4 hours as needed for wheezing, cough, or shortness of breath. # SILVER: Continue nightly CPAP. # Seasonal allergies: Continue fluticasone 2 sprays in each nostril daily. Continue azelastine 2 sprays in each nostril daily as needed. # POTS: Continue regular hydration as well as supplementation with salt. Please follow-up with PCP. Blood pressure stable in office today. Patient was reassured and welcomed to the practice. We discussed that we stress a hollistic medical approach with emphasis on lifestyle modification. Patient was informed that a healthy lifestyle with exercise and good eating habits can help reduce their risk of medical complications. Patient is explained that obesity increases their risk of diabetes, cardiovascular disease, or organ damage. We spent a lot of time discussing the relationship between food, exercise, sleep, mental health and obesity. Patient was counseled on the importance EATING local, organic food when possible. Patient was educated on clean 15 and dirty dozen. I provided information about reading books called The Food Rules by Blaine Galvan and Eat Fat Get Lean by Dr Louie Patel. Self education is important in the journey for weight management. Patient was offered diagnostic testing/ SECA scale. We want to measure visceral adiposity, advanced body composition, adverse lipids, fatty acid balance, risk for heart disease and atherosclerosis, markers of inflammation and genetic susceptibility. Patient was counseled on weight management and was advised to lose weight using A. Meal Replacement Products Patient was educated on the replacement products called optifast. This is a good way of taking fixed amount of calories. It has been shown in studies to be ineffective weight management tool. This however has to be coupled with lifestyle intervention as well as laboratory data and EKG monitoring. It is impossible to know how a person will tolerate complete meal replacement. The side effects of meal replacement and weight loss could include syncopal attacks, dizziness, gallstones, potential cholecystectomy, possible heart attack and even . The benefits of meal replacement would be potential weight loss but no guarantees can be made. Meal replacement products are not covered by insurance. Once the patient has bought these products we cannot return them B. Lifestyle management which includes several strategies as below 1. Eat a low carbohydrate good fat good protein diet. Eliminate refined carbohydrates from the diet. Limit sugared beverages. Eat local organic when possible. Cook your own meals. Read food labels. Focus on healthy snacks. Portion control and food with low glycemic index 2. Exercise regularly. Try to get at least 6000 steps a day. Use a predominant to track activity level. Consider using apps like 7 minute excercise, myfitTapDogpal, lose it, stick as needed for self-monitoring and weight management. Consider group exercises. Consider hiring a epic trainer. Regular exercise is hayes to sustainable health and prevents as a buffer against weight regain 3. Sleep is most important for healing. Try to sleep at least 6-8 hours a night. A good quality sleep needs a sleep ritual with ideal room temperature of around 68. It might help to take a shower and have no electronics in the room and sleep in a very dark room without artificial light. Start sleep routine and get up early in the morning and go to bed on time. 4. Make a social connection. Surround yourself with positive people with positive energy. Connect with friends and family. 5. Get into the habit of meditating and mindfulness while doing everything. 6. Go outside and connect with nature. C. Prescription medications Patient was educated on the use of prescription medications for medical weight loss. This is a growing list and includes phentermine, Topamax,Qsymia, contrave, belviq and saxenda, wegovy etc. All prescription medications could have side effects including but not limited to kidney stones, seizure disorder cardiac arrhythmias heart attack pancreatitis, GI effects, Etc. Patient was encouraged to read the prescription insert and have coaching with their pharmacist and make an informed decision about taking medication and know that these medications are being prescribed with good intentions and we do not know how a patient would react to the medication. Some medications are FDA approved for weight loss and there is also off label use depending on patient's inability to afford medications in an attempt to lose weight D. Behavioral counseling was done to establish a relationship between food and an mood. Patient was provided information about local counseling and psychiatry and Dr Sumner at [facility]. We would like to cover regular topics and build on low glycemic eating exercise mindful eating, using yoga and meditation along with deep breathing and connecting with friends and family. E. MASS PAT reviewed, Patient's current medications were reviewed and opinion was given on medication that can cause weight gain and can be substituted F. Patient was assessed for risk with obesity including and not limiting to atherosclerosis heart disease stroke kidney disease, restrictive lung disease, irritable bowel syndrome and overall mortality. Risk of developing prediabetes diabetes and metabolic syndrome was discussed G. Therapeutic plan: We have decided to make therapeutic plan which would include choosing wisely on calories restricting portion getting active, tracking weight, getting good quality sleep and working on time management H. Patient will follow up in 4 weeks for weight management Total time spent today was 60 minutes of which greater than 50% was spent on coordinating and counseling After consultation and careful review of medical history, this patient would benefit from Zepbound based off of the following criteria met: Patient is over the age of 18, has a BMI of 49.64. Additional comorbidities include hyperlipidemia, PCOS, prediabetes, SILVER on CPAP, Mary Lou's, asthma, POTS, seasonal allergies, and anxiety/depression. Patient has trialed other methods of weight loss including improving diet, exercise without success over three months. This medication is prescribed by or in consultation with a board certified obesity and weight management physician (Dr. Kyler Rollins or Dr. Remy Rollins). Case discussed with collaborating physician Valentina Rollins who reviewed the assessment and plan. Chart, medications, labs, vital signs reviewed. Dictation was accomplished with the use of [employer] Wonder voice recognition software, prone to medical misidentifications and grammatical errors. This is unintentional and the practitioner does try to identify and correct these, but some could still be present. Please do not hesitate to contact practitioner for clarification. All questions answered to patients satisfaction. Patient verbalized understanding of diagnosis and treatments explained. To call sooner prior to next visit it any questions/concerns arise. 10/18/2024 SILVER on CPAP (ICD-10 - G47.33) Modesta is a 29-year-old female with history of obesity who presents to the office today for weight management consult. Medical history, labs, allergies, medications, and social history reviewed with the patient. Provided education on healthy diet and lifestyle which includes high-protein, low carbohydrate, high-fiber, and a variety of fruits and vegetables. Patient encouraged to exercise with emphasis on resistance training minimum 3 times per week to maintain muscle mass and cardio to burn fat. All patient questions answered. Patient will follow-up in 2 to 4 weeks for weight management. 10/18/2024: Weight 317 pounds, BMI 49.64. SECA scan completed today and interpreted with the patient. Patient reports several factors contributing to weight gain including increased stress/anxiety, family history of obesity, and PCOS. Has trialed weight watchers as well as Trulicity. Has been implementing increased walking as well as working in physical therapy over the previous several months to increase her strength. With concomitant history of SILVER on CPAP among other comorbidities she is a good candidate for Zepbound. We discussed proper use of the medication and potential side effects including but not limited to nausea, constipation, heartburn, or abdominal pain. Patient has no contraindications to GLP-1's. Advised that the medication requires a prior authorization and she will follow-up in office in 4 weeks. # PCOS: Reports concomitant history of prediabetes with recent hemoglobin A1c of 5.6%. Aware that PCOS may increase risk of insulin resistance. Continue metformin 500 mg 1 tablet daily. Continue follow-up with gynecology. # Depression/anxiety: Continue escitalopram 5 mg 1 tablet daily. Continue buspirone 15 mg daily. Continue methylphenidate 18 mg daily. Continue clonazepam 0.5 mg daily as needed for breakthrough anxiety. Will continue to monitor. # Asthma: Asymptomatic in office. Continue montelukast 10 mg once daily. Continue albuterol 2 puffs every 4 hours as needed for wheezing, cough, or shortness of breath. # SILVER: Continue nightly CPAP. # Seasonal allergies: Continue fluticasone 2 sprays in each nostril daily. Continue azelastine 2 sprays in each nostril daily as needed. # POTS: Continue regular hydration as well as supplementation with salt. Please follow-up with PCP. Blood pressure stable in office today. Patient was reassured and welcomed to the practice. We discussed that we stress a hollistic medical approach with emphasis on lifestyle modification. Patient was informed that a healthy lifestyle with exercise and good eating habits can help reduce their risk of medical complications. Patient is explained that obesity increases their risk of diabetes, cardiovascular disease, or organ damage. We spent a lot of time discussing the relationship between food, exercise, sleep, mental health and obesity. Patient was counseled on the importance EATING local, organic food when possible. Patient was educated on clean 15 and dirty dozen. I provided information about reading books called The Food Rules by Blaine Galvan and Eat Fat Get Lean by Dr Louie Patel. Self education is important in the journey for weight management. Patient was offered diagnostic testing/ SECA scale. We want to measure visceral adiposity, advanced body composition, adverse lipids, fatty acid balance, risk for heart disease and atherosclerosis, markers of inflammation and genetic susceptibility. Patient was counseled on weight management and was advised to lose weight using A. Meal Replacement Products Patient was educated on the replacement products called optifast. This is a good way of taking fixed amount of calories. It has been shown in studies to be ineffective weight management tool. This however has to be coupled with lifestyle intervention as well as laboratory data and EKG monitoring. It is impossible to know how a person will tolerate complete meal replacement. The side effects of meal replacement and weight loss could include syncopal attacks, dizziness, gallstones, potential cholecystectomy, possible heart attack and even . The benefits of meal replacement would be potential weight loss but no guarantees can be made. Meal replacement products are not covered by insurance. Once the patient has bought these products we cannot return them B. Lifestyle management which includes several strategies as below 1. Eat a low carbohydrate good fat good protein diet. Eliminate refined carbohydrates from the diet. Limit sugared beverages. Eat local organic when possible. Cook your own meals. Read food labels. Focus on healthy snacks. Portion control and food with low glycemic index 2. Exercise regularly. Try to get at least 6000 steps a day. Use a predominant to track activity level. Consider using apps like 7 minute excercise, Meituan.compal, lose it, stick as needed for self-monitoring and weight management. Consider group exercises. Consider hiring a epic trainer. Regular exercise is hayes to sustainable health and prevents as a buffer against weight regain 3. Sleep is most important for healing. Try to sleep at least 6-8 hours a night. A good quality sleep needs a sleep ritual with ideal room temperature of around 68. It might help to take a shower and have no electronics in the room and sleep in a very dark room without artificial light. Start sleep routine and get up early in the morning and go to bed on time. 4. Make a social connection. Surround yourself with positive people with positive energy. Connect with friends and family. 5. Get into the habit of meditating and mindfulness while doing everything. 6. Go outside and connect with nature. C. Prescription medications Patient was educated on the use of prescription medications for medical weight loss. This is a growing list and includes phentermine, Topamax,Qsymia, contrave, belviq and saxenda, wegovy etc. All prescription medications could have side effects including but not limited to kidney stones, seizure disorder cardiac arrhythmias heart attack pancreatitis, GI effects, Etc. Patient was encouraged to read the prescription insert and have coaching with their pharmacist and make an informed decision about taking medication and know that these medications are being prescribed with good intentions and we do not know how a patient would react to the medication. Some medications are FDA approved for weight loss and there is also off label use depending on patient's inability to afford medications in an attempt to lose weight D. Behavioral counseling was done to establish a relationship between food and an mood. Patient was provided information about local counseling and psychiatry and Dr Sumner at [facility]. We would like to cover regular topics and build on low glycemic eating exercise mindful eating, using yoga and meditation along with deep breathing and connecting with friends and family. E. MASS PAT reviewed, Patient's current medications were reviewed and opinion was given on medication that can cause weight gain and can be substituted F. Patient was assessed for risk with obesity including and not limiting to atherosclerosis heart disease stroke kidney disease, restrictive lung disease, irritable bowel syndrome and overall mortality. Risk of developing prediabetes diabetes and metabolic syndrome was discussed G. Therapeutic plan: We have decided to make therapeutic plan which would include choosing wisely on calories restricting portion getting active, tracking weight, getting good quality sleep and working on time management H. Patient will follow up in 4 weeks for weight management Total time spent today was 60 minutes of which greater than 50% was spent on coordinating and counseling After consultation and careful review of medical history, this patient would benefit from Zepbound based off of the following criteria met: Patient is over the age of 18, has a BMI of 49.64. Additional comorbidities include hyperlipidemia, PCOS, prediabetes, SILVER on CPAP, Mary Lou's, asthma, POTS, seasonal allergies, and anxiety/depression. Patient has trialed other methods of weight loss including improving diet, exercise without success over three months. This medication is prescribed by or in consultation with a board certified obesity and weight management physician (Dr. Kyler Rollins or Dr. Remy Rollins). Case discussed with collaborating physician Valentina Rollins who reviewed the assessment and plan. Chart, medications, labs, vital signs reviewed. Dictation was accomplished with the use of Comic Wonder voice recognition software, prone to medical misidentifications and grammatical errors. This is unintentional and the practitioner does try to identify and correct these, but some could still be present. Please do not hesitate to contact practitioner for clarification. All questions answered to patients satisfaction. Patient verbalized understanding of diagnosis and treatments explained. To call sooner prior to next visit it any questions/concerns arise. 10/18/2024 Prediabetes (ICD-10 - R73.03) Modesta is a 29-year-old female with history of obesity who presents to the office today for weight management consult. Medical history, labs, allergies, medications, and social history reviewed with the patient. Provided education on healthy diet and lifestyle which includes high-protein, low carbohydrate, high-fiber, and a variety of fruits and vegetables. Patient encouraged to exercise with emphasis on resistance training minimum 3 times per week to maintain muscle mass and cardio to burn fat. All patient questions answered. Patient will follow-up in 2 to 4 weeks for weight management. 10/18/2024: Weight 317 pounds, BMI 49.64. SECA scan completed today and interpreted with the patient. Patient reports several factors contributing to weight gain including increased stress/anxiety, family history of obesity, and PCOS. Has trialed weight watchers as well as Trulicity. Has been implementing increased walking as well as working in physical therapy over the previous several months to increase her strength. With concomitant history of SILVER on CPAP among other comorbidities she is a good candidate for Zepbound. We discussed proper use of the medication and potential side effects including but not limited to nausea, constipation, heartburn, or abdominal pain. Patient has no contraindications to GLP-1's. Advised that the medication requires a prior authorization and she will follow-up in office in 4 weeks. # PCOS: Reports concomitant history of prediabetes with recent hemoglobin A1c of 5.6%. Aware that PCOS may increase risk of insulin resistance. Continue metformin 500 mg 1 tablet daily. Continue follow-up with gynecology. # Depression/anxiety: Continue escitalopram 5 mg 1 tablet daily. Continue buspirone 15 mg daily. Continue methylphenidate 18 mg daily. Continue clonazepam 0.5 mg daily as needed for breakthrough anxiety. Will continue to monitor. # Asthma: Asymptomatic in office. Continue montelukast 10 mg once daily. Continue albuterol 2 puffs every 4 hours as needed for wheezing, cough, or shortness of breath. # SILVER: Continue nightly CPAP. # Seasonal allergies: Continue fluticasone 2 sprays in each nostril daily. Continue azelastine 2 sprays in each nostril daily as needed. # POTS: Continue regular hydration as well as supplementation with salt. Please follow-up with PCP. Blood pressure stable in office today. Patient was reassured and welcomed to the practice. We discussed that we stress a hollistic medical approach with emphasis on lifestyle modification. Patient was informed that a healthy lifestyle with exercise and good eating habits can help reduce their risk of medical complications. Patient is explained that obesity increases their risk of diabetes, cardiovascular disease, or organ damage. We spent a lot of time discussing the relationship between food, exercise, sleep, mental health and obesity. Patient was counseled on the importance EATING local, organic food when possible. Patient was educated on clean 15 and dirty dozen. I provided information about reading books called The Food Rules by Blaine Galvan and Eat Fat Get Lean by Dr Louie Paetl. Self education is important in the journey for weight management. Patient was offered diagnostic testing/ SECA scale. We want to measure visceral adiposity, advanced body composition, adverse lipids, fatty acid balance, risk for heart disease and atherosclerosis, markers of inflammation and genetic susceptibility. Patient was counseled on weight management and was advised to lose weight using A. Meal Replacement Products Patient was educated on the replacement products called optifast. This is a good way of taking fixed amount of calories. It has been shown in studies to be ineffective weight management tool. This however has to be coupled with lifestyle intervention as well as laboratory data and EKG monitoring. It is impossible to know how a person will tolerate complete meal replacement. The side effects of meal replacement and weight loss could include syncopal attacks, dizziness, gallstones, potential cholecystectomy, possible heart attack and even . The benefits of meal replacement would be potential weight loss but no guarantees can be made. Meal replacement products are not covered by insurance. Once the patient has bought these products we cannot return them B. Lifestyle management which includes several strategies as below 1. Eat a low carbohydrate good fat good protein diet. Eliminate refined carbohydrates from the diet. Limit sugared beverages. Eat local organic when possible. Cook your own meals. Read food labels. Focus on healthy snacks. Portion control and food with low glycemic index 2. Exercise regularly. Try to get at least 6000 steps a day. Use a predominant to track activity level. Consider using apps like 7 minute excercise, Meituan.compal, lose it, stick as needed for self-monitoring and weight management. Consider group exercises. Consider hiring a epic trainer. Regular exercise is hayes to sustainable health and prevents as a buffer against weight regain 3. Sleep is most important for healing. Try to sleep at least 6-8 hours a night. A good quality sleep needs a sleep ritual with ideal room temperature of around 68. It might help to take a shower and have no electronics in the room and sleep in a very dark room without artificial light. Start sleep routine and get up early in the morning and go to bed on time. 4. Make a social connection. Surround yourself with positive people with positive energy. Connect with friends and family. 5. Get into the habit of meditating and mindfulness while doing everything. 6. Go outside and connect with nature. C. Prescription medications Patient was educated on the use of prescription medications for medical weight loss. This is a growing list and includes phentermine, Topamax,Qsymia, contrave, belviq and saxenda, wegovy etc. All prescription medications could have side effects including but not limited to kidney stones, seizure disorder cardiac arrhythmias heart attack pancreatitis, GI effects, Etc. Patient was encouraged to read the prescription insert and have coaching with their pharmacist and make an informed decision about taking medication and know that these medications are being prescribed with good intentions and we do not know how a patient would react to the medication. Some medications are FDA approved for weight loss and there is also off label use depending on patient's inability to afford medications in an attempt to lose weight D. Behavioral counseling was done to establish a relationship between food and an mood. Patient was provided information about local counseling and psychiatry and Dr Sumner at [facility]. We would like to cover regular topics and build on low glycemic eating exercise mindful eating, using yoga and meditation along with deep breathing and connecting with friends and family. E. MASS PAT reviewed, Patient's current medications were reviewed and opinion was given on medication that can cause weight gain and can be substituted F. Patient was assessed for risk with obesity including and not limiting to atherosclerosis heart disease stroke kidney disease, restrictive lung disease, irritable bowel syndrome and overall mortality. Risk of developing prediabetes diabetes and metabolic syndrome was discussed G. Therapeutic plan: We have decided to make therapeutic plan which would include choosing wisely on calories restricting portion getting active, tracking weight, getting good quality sleep and working on time management H. Patient will follow up in 4 weeks for weight management Total time spent today was 60 minutes of which greater than 50% was spent on coordinating and counseling After consultation and careful review of medical history, this patient would benefit from Zepbound based off of the following criteria met: Patient is over the age of 18, has a BMI of 49.64. Additional comorbidities include hyperlipidemia, PCOS, prediabetes, SILVER on CPAP, Mary Lou's, asthma, POTS, seasonal allergies, and anxiety/depression. Patient has trialed other methods of weight loss including improving diet, exercise without success over three months. This medication is prescribed by or in consultation with a board certified obesity and weight management physician (Dr. Kyler Rollins or Dr. Remy Rollins). Case discussed with collaborating physician Valentina Rollins who reviewed the assessment and plan. Chart, medications, labs, vital signs reviewed. Dictation was accomplished with the use of [employer] Wonder voice recognition software, prone to medical misidentifications and grammatical errors. This is unintentional and the practitioner does try to identify and correct these, but some could still be present. Please do not hesitate to contact practitioner for clarification. All questions answered to patients satisfaction. Patient verbalized understanding of diagnosis and treatments explained. To call sooner prior to next visit it any questions/concerns arise. 10/18/2024 PCOS (polycystic ovarian syndrome) (ICD-10 - E28.2) Modesta is a 29-year-old female with history of obesity who presents to the office today for weight management consult. Medical history, labs, allergies, medications, and social history reviewed with the patient. Provided education on healthy diet and lifestyle which includes high-protein, low carbohydrate, high-fiber, and a variety of fruits and vegetables. Patient encouraged to exercise with emphasis on resistance training minimum 3 times per week to maintain muscle mass and cardio to burn fat. All patient questions answered. Patient will follow-up in 2 to 4 weeks for weight management. 10/18/2024: Weight 317 pounds, BMI 49.64. SECA scan completed today and interpreted with the patient. Patient reports several factors contributing to weight gain including increased stress/anxiety, family history of obesity, and PCOS. Has trialed weight watchers as well as Trulicity. Has been implementing increased walking as well as working in physical therapy over the previous several months to increase her strength. With concomitant history of SILVER on CPAP among other comorbidities she is a good candidate for Zepbound. We discussed proper use of the medication and potential side effects including but not limited to nausea, constipation, heartburn, or abdominal pain. Patient has no contraindications to GLP-1's. Advised that the medication requires a prior authorization and she will follow-up in office in 4 weeks. # PCOS: Reports concomitant history of prediabetes with recent hemoglobin A1c of 5.6%. Aware that PCOS may increase risk of insulin resistance. Continue metformin 500 mg 1 tablet daily. Continue follow-up with gynecology. # Depression/anxiety: Continue escitalopram 5 mg 1 tablet daily. Continue buspirone 15 mg daily. Continue methylphenidate 18 mg daily. Continue clonazepam 0.5 mg daily as needed for breakthrough anxiety. Will continue to monitor. # Asthma: Asymptomatic in office. Continue montelukast 10 mg once daily. Continue albuterol 2 puffs every 4 hours as needed for wheezing, cough, or shortness of breath. # SILVER: Continue nightly CPAP. # Seasonal allergies: Continue fluticasone 2 sprays in each nostril daily. Continue azelastine 2 sprays in each nostril daily as needed. # POTS: Continue regular hydration as well as supplementation with salt. Please follow-up with PCP. Blood pressure stable in office today. Patient was reassured and welcomed to the practice. We discussed that we stress a hollistic medical approach with emphasis on lifestyle modification. Patient was informed that a healthy lifestyle with exercise and good eating habits can help reduce their risk of medical complications. Patient is explained that obesity increases their risk of diabetes, cardiovascular disease, or organ damage. We spent a lot of time discussing the relationship between food, exercise, sleep, mental health and obesity. Patient was counseled on the importance EATING local, organic food when possible. Patient was educated on clean 15 and dirty dozen. I provided information about reading books called The Food Rules by Blaine Galvan and Eat Fat Get Lean by Dr Louie Patel. Self education is important in the journey for weight management. Patient was offered diagnostic testing/ SECA scale. We want to measure visceral adiposity, advanced body composition, adverse lipids, fatty acid balance, risk for heart disease and atherosclerosis, markers of inflammation and genetic susceptibility. Patient was counseled on weight management and was advised to lose weight using A. Meal Replacement Products Patient was educated on the replacement products called optifast. This is a good way of taking fixed amount of calories. It has been shown in studies to be ineffective weight management tool. This however has to be coupled with lifestyle intervention as well as laboratory data and EKG monitoring. It is impossible to know how a person will tolerate complete meal replacement. The side effects of meal replacement and weight loss could include syncopal attacks, dizziness, gallstones, potential cholecystectomy, possible heart attack and even . The benefits of meal replacement would be potential weight loss but no guarantees can be made. Meal replacement products are not covered by insurance. Once the patient has bought these products we cannot return them B. Lifestyle management which includes several strategies as below 1. Eat a low carbohydrate good fat good protein diet. Eliminate refined carbohydrates from the diet. Limit sugared beverages. Eat local organic when possible. Cook your own meals. Read food labels. Focus on healthy snacks. Portion control and food with low glycemic index 2. Exercise regularly. Try to get at least 6000 steps a day. Use a predominant to track activity level. Consider using apps like 7 minute excercise, myfitnesspal, lose it, stick as needed for self-monitoring and weight management. Consider group exercises. Consider hiring a epic trainer. Regular exercise is hayes to sustainable health and prevents as a buffer against weight regain 3. Sleep is most important for healing. Try to sleep at least 6-8 hours a night. A good quality sleep needs a sleep ritual with ideal room temperature of around 68. It might help to take a shower and have no electronics in the room and sleep in a very dark room without artificial light. Start sleep routine and get up early in the morning and go to bed on time. 4. Make a social connection. Surround yourself with positive people with positive energy. Connect with friends and family. 5. Get into the habit of meditating and mindfulness while doing everything. 6. Go outside and connect with nature. C. Prescription medications Patient was educated on the use of prescription medications for medical weight loss. This is a growing list and includes phentermine, Topamax,Qsymia, contrave, belviq and saxenda, wegovy etc. All prescription medications could have side effects including but not limited to kidney stones, seizure disorder cardiac arrhythmias heart attack pancreatitis, GI effects, Etc. Patient was encouraged to read the prescription insert and have coaching with their pharmacist and make an informed decision about taking medication and know that these medications are being prescribed with good intentions and we do not know how a patient would react to the medication. Some medications are FDA approved for weight loss and there is also off label use depending on patient's inability to afford medications in an attempt to lose weight D. Behavioral counseling was done to establish a relationship between food and an mood. Patient was provided information about local counseling and psychiatry and Dr Sumner at [facility]. We would like to cover regular topics and build on low glycemic eating exercise mindful eating, using yoga and meditation along with deep breathing and connecting with friends and family. E. MASS PAT reviewed, Patient's current medications were reviewed and opinion was given on medication that can cause weight gain and can be substituted F. Patient was assessed for risk with obesity including and not limiting to atherosclerosis heart disease stroke kidney disease, restrictive lung disease, irritable bowel syndrome and overall mortality. Risk of developing prediabetes diabetes and metabolic syndrome was discussed G. Therapeutic plan: We have decided to make therapeutic plan which would include choosing wisely on calories restricting portion getting active, tracking weight, getting good quality sleep and working on time management H. Patient will follow up in 4 weeks for weight management Total time spent today was 60 minutes of which greater than 50% was spent on coordinating and counseling After consultation and careful review of medical history, this patient would benefit from Zepbound based off of the following criteria met: Patient is over the age of 18, has a BMI of 49.64. Additional comorbidities include hyperlipidemia, PCOS, prediabetes, SILVER on CPAP, Mary Lou's, asthma, POTS, seasonal allergies, and anxiety/depression. Patient has trialed other methods of weight loss including improving diet, exercise without success over three months. This medication is prescribed by or in consultation with a board certified obesity and weight management physician (Dr. Kyler Rollins or Dr. Remy Rollins). Case discussed with collaborating physician Valentina Rollins who reviewed the assessment and plan. Chart, medications, labs, vital signs reviewed. Dictation was accomplished with the use of Comic Wonder voice recognition software, prone to medical misidentifications and grammatical errors. This is unintentional and the practitioner does try to identify and correct these, but some could still be present. Please do not hesitate to contact practitioner for clarification. All questions answered to patients satisfaction. Patient verbalized understanding of diagnosis and treatments explained. To call sooner prior to next visit it any questions/concerns arise. 10/18/2024 Moderate mixed hyperlipidemia not requiring statin therapy (ICD-10 - E78.2) Modesta is a 29-year-old female with history of obesity who presents to the office today for weight management consult. Medical history, labs, allergies, medications, and social history reviewed with the patient. Provided education on healthy diet and lifestyle which includes high-protein, low carbohydrate, high-fiber, and a variety of fruits and vegetables. Patient encouraged to exercise with emphasis on resistance training minimum 3 times per week to maintain muscle mass and cardio to burn fat. All patient questions answered. Patient will follow-up in 2 to 4 weeks for weight management. 10/18/2024: Weight 317 pounds, BMI 49.64. SECA scan completed today and interpreted with the patient. Patient reports several factors contributing to weight gain including increased stress/anxiety, family history of obesity, and PCOS. Has trialed weight watchers as well as Trulicity. Has been implementing increased walking as well as working in physical therapy over the previous several months to increase her strength. With concomitant history of SILVER on CPAP among other comorbidities she is a good candidate for Zepbound. We discussed proper use of the medication and potential side effects including but not limited to nausea, constipation, heartburn, or abdominal pain. Patient has no contraindications to GLP-1's. Advised that the medication requires a prior authorization and she will follow-up in office in 4 weeks. # PCOS: Reports concomitant history of prediabetes with recent hemoglobin A1c of 5.6%. Aware that PCOS may increase risk of insulin resistance. Continue metformin 500 mg 1 tablet daily. Continue follow-up with gynecology. # Depression/anxiety: Continue escitalopram 5 mg 1 tablet daily. Continue buspirone 15 mg daily. Continue methylphenidate 18 mg daily. Continue clonazepam 0.5 mg daily as needed for breakthrough anxiety. Will continue to monitor. # Asthma: Asymptomatic in office. Continue montelukast 10 mg once daily. Continue albuterol 2 puffs every 4 hours as needed for wheezing, cough, or shortness of breath. # SILVER: Continue nightly CPAP. # Seasonal allergies: Continue fluticasone 2 sprays in each nostril daily. Continue azelastine 2 sprays in each nostril daily as needed. # POTS: Continue regular hydration as well as supplementation with salt. Please follow-up with PCP. Blood pressure stable in office today. Patient was reassured and welcomed to the practice. We discussed that we stress a hollistic medical approach with emphasis on lifestyle modification. Patient was informed that a healthy lifestyle with exercise and good eating habits can help reduce their risk of medical complications. Patient is explained that obesity increases their risk of diabetes, cardiovascular disease, or organ damage. We spent a lot of time discussing the relationship between food, exercise, sleep, mental health and obesity. Patient was counseled on the importance EATING local, organic food when possible. Patient was educated on clean 15 and dirty dozen. I provided information about reading books called The Food Rules by Blaine Galvan and Eat Fat Get Lean by Dr Louie Patel. Self education is important in the journey for weight management. Patient was offered diagnostic testing/ SECA scale. We want to measure visceral adiposity, advanced body composition, adverse lipids, fatty acid balance, risk for heart disease and atherosclerosis, markers of inflammation and genetic susceptibility. Patient was counseled on weight management and was advised to lose weight using A. Meal Replacement Products Patient was educated on the replacement products called optifast. This is a good way of taking fixed amount of calories. It has been shown in studies to be ineffective weight management tool. This however has to be coupled with lifestyle intervention as well as laboratory data and EKG monitoring. It is impossible to know how a person will tolerate complete meal replacement. The side effects of meal replacement and weight loss could include syncopal attacks, dizziness, gallstones, potential cholecystectomy, possible heart attack and even . The benefits of meal replacement would be potential weight loss but no guarantees can be made. Meal replacement products are not covered by insurance. Once the patient has bought these products we cannot return them B. Lifestyle management which includes several strategies as below 1. Eat a low carbohydrate good fat good protein diet. Eliminate refined carbohydrates from the diet. Limit sugared beverages. Eat local organic when possible. Cook your own meals. Read food labels. Focus on healthy snacks. Portion control and food with low glycemic index 2. Exercise regularly. Try to get at least 6000 steps a day. Use a predominant to track activity level. Consider using apps like 7 minute excercise, Meituan.compal, lose it, stick as needed for self-monitoring and weight management. Consider group exercises. Consider hiring a epic trainer. Regular exercise is hayes to sustainable health and prevents as a buffer against weight regain 3. Sleep is most important for healing. Try to sleep at least 6-8 hours a night. A good quality sleep needs a sleep ritual with ideal room temperature of around 68. It might help to take a shower and have no electronics in the room and sleep in a very dark room without artificial light. Start sleep routine and get up early in the morning and go to bed on time. 4. Make a social connection. Surround yourself with positive people with positive energy. Connect with friends and family. 5. Get into the habit of meditating and mindfulness while doing everything. 6. Go outside and connect with nature. C. Prescription medications Patient was educated on the use of prescription medications for medical weight loss. This is a growing list and includes phentermine, Topamax,Qsymia, contrave, belviq and saxenda, wegovy etc. All prescription medications could have side effects including but not limited to kidney stones, seizure disorder cardiac arrhythmias heart attack pancreatitis, GI effects, Etc. Patient was encouraged to read the prescription insert and have coaching with their pharmacist and make an informed decision about taking medication and know that these medications are being prescribed with good intentions and we do not know how a patient would react to the medication. Some medications are FDA approved for weight loss and there is also off label use depending on patient's inability to afford medications in an attempt to lose weight D. Behavioral counseling was done to establish a relationship between food and an mood. Patient was provided information about local counseling and psychiatry and Dr Sumner at [facility]. We would like to cover regular topics and build on low glycemic eating exercise mindful eating, using yoga and meditation along with deep breathing and connecting with friends and family. E. MASS PAT reviewed, Patient's current medications were reviewed and opinion was given on medication that can cause weight gain and can be substituted F. Patient was assessed for risk with obesity including and not limiting to atherosclerosis heart disease stroke kidney disease, restrictive lung disease, irritable bowel syndrome and overall mortality. Risk of developing prediabetes diabetes and metabolic syndrome was discussed G. Therapeutic plan: We have decided to make therapeutic plan which would include choosing wisely on calories restricting portion getting active, tracking weight, getting good quality sleep and working on time management H. Patient will follow up in 4 weeks for weight management Total time spent today was 60 minutes of which greater than 50% was spent on coordinating and counseling After consultation and careful review of medical history, this patient would benefit from Zepbound based off of the following criteria met: Patient is over the age of 18, has a BMI of 49.64. Additional comorbidities include hyperlipidemia, PCOS, prediabetes, SILVER on CPAP, Mary Lou's, asthma, POTS, seasonal allergies, and anxiety/depression. Patient has trialed other methods of weight loss including improving diet, exercise without success over three months. This medication is prescribed by or in consultation with a board certified obesity and weight management physician (Dr. Kyler Rollins or Dr. Remy Rollins). Case discussed with collaborating physician Valentina Rollins who reviewed the assessment and plan. Chart, medications, labs, vital signs reviewed. Dictation was accomplished with the use of [employer] voice recognition software, prone to medical misidentifications and grammatical errors. This is unintentional and the practitioner does try to identify and correct these, but some could still be present. Please do not hesitate to contact practitioner for clarification. All questions answered to patients satisfaction. Patient verbalized understanding of diagnosis and treatments explained. To call sooner prior to next visit it any questions/concerns arise. 10/18/2024 Depression with anxiety (ICD-10 - F41.8) Modesta is a 29-year-old female with history of obesity who presents to the office today for weight management consult. Medical history, labs, allergies, medications, and social history reviewed with the patient. Provided education on healthy diet and lifestyle which includes high-protein, low carbohydrate, high-fiber, and a variety of fruits and vegetables. Patient encouraged to exercise with emphasis on resistance training minimum 3 times per week to maintain muscle mass and cardio to burn fat. All patient questions answered. Patient will follow-up in 2 to 4 weeks for weight management. 10/18/2024: Weight 317 pounds, BMI 49.64. SECA scan completed today and interpreted with the patient. Patient reports several factors contributing to weight gain including increased stress/anxiety, family history of obesity, and PCOS. Has trialed weight watchers as well as Trulicity. Has been implementing increased walking as well as working in physical therapy over the previous several months to increase her strength. With concomitant history of SILVER on CPAP among other comorbidities she is a good candidate for Zepbound. We discussed proper use of the medication and potential side effects including but not limited to nausea, constipation, heartburn, or abdominal pain. Patient has no contraindications to GLP-1's. Advised that the medication requires a prior authorization and she will follow-up in office in 4 weeks. # PCOS: Reports concomitant history of prediabetes with recent hemoglobin A1c of 5.6%. Aware that PCOS may increase risk of insulin resistance. Continue metformin 500 mg 1 tablet daily. Continue follow-up with gynecology. # Depression/anxiety: Continue escitalopram 5 mg 1 tablet daily. Continue buspirone 15 mg daily. Continue methylphenidate 18 mg daily. Continue clonazepam 0.5 mg daily as needed for breakthrough anxiety. Will continue to monitor. # Asthma: Asymptomatic in office. Continue montelukast 10 mg once daily. Continue albuterol 2 puffs every 4 hours as needed for wheezing, cough, or shortness of breath. # SILVER: Continue nightly CPAP. # Seasonal allergies: Continue fluticasone 2 sprays in each nostril daily. Continue azelastine 2 sprays in each nostril daily as needed. # POTS: Continue regular hydration as well as supplementation with salt. Please follow-up with PCP. Blood pressure stable in office today. Patient was reassured and welcomed to the practice. We discussed that we stress a hollistic medical approach with emphasis on lifestyle modification. Patient was informed that a healthy lifestyle with exercise and good eating habits can help reduce their risk of medical complications. Patient is explained that obesity increases their risk of diabetes, cardiovascular disease, or organ damage. We spent a lot of time discussing the relationship between food, exercise, sleep, mental health and obesity. Patient was counseled on the importance EATING local, organic food when possible. Patient was educated on clean 15 and dirty dozen. I provided information about reading books called The Food Rules by Blaine Galvan and Eat Fat Get Lean by Dr Louie Patel. Self education is important in the journey for weight management. Patient was offered diagnostic testing/ SECA scale. We want to measure visceral adiposity, advanced body composition, adverse lipids, fatty acid balance, risk for heart disease and atherosclerosis, markers of inflammation and genetic susceptibility. Patient was counseled on weight management and was advised to lose weight using A. Meal Replacement Products Patient was educated on the replacement products called optifast. This is a good way of taking fixed amount of calories. It has been shown in studies to be ineffective weight management tool. This however has to be coupled with lifestyle intervention as well as laboratory data and EKG monitoring. It is impossible to know how a person will tolerate complete meal replacement. The side effects of meal replacement and weight loss could include syncopal attacks, dizziness, gallstones, potential cholecystectomy, possible heart attack and even . The benefits of meal replacement would be potential weight loss but no guarantees can be made. Meal replacement products are not covered by insurance. Once the patient has bought these products we cannot return them B. Lifestyle management which includes several strategies as below 1. Eat a low carbohydrate good fat good protein diet. Eliminate refined carbohydrates from the diet. Limit sugared beverages. Eat local organic when possible. Cook your own meals. Read food labels. Focus on healthy snacks. Portion control and food with low glycemic index 2. Exercise regularly. Try to get at least 6000 steps a day. Use a predominant to track activity level. Consider using apps like 7 minute excercise, myTwitpaypal, lose it, stick as needed for self-monitoring and weight management. Consider group exercises. Consider hiring a epic trainer. Regular exercise is hayes to sustainable health and prevents as a buffer against weight regain 3. Sleep is most important for healing. Try to sleep at least 6-8 hours a night. A good quality sleep needs a sleep ritual with ideal room temperature of around 68. It might help to take a shower and have no electronics in the room and sleep in a very dark room without artificial light. Start sleep routine and get up early in the morning and go to bed on time. 4. Make a social connection. Surround yourself with positive people with positive energy. Connect with friends and family. 5. Get into the habit of meditating and mindfulness while doing everything. 6. Go outside and connect with nature. C. Prescription medications Patient was educated on the use of prescription medications for medical weight loss. This is a growing list and includes phentermine, Topamax,Qsymia, contrave, belviq and saxenda, wegovy etc. All prescription medications could have side effects including but not limited to kidney stones, seizure disorder cardiac arrhythmias heart attack pancreatitis, GI effects, Etc. Patient was encouraged to read the prescription insert and have coaching with their pharmacist and make an informed decision about taking medication and know that these medications are being prescribed with good intentions and we do not know how a patient would react to the medication. Some medications are FDA approved for weight loss and there is also off label use depending on patient's inability to afford medications in an attempt to lose weight D. Behavioral counseling was done to establish a relationship between food and an mood. Patient was provided information about local counseling and psychiatry and Dr Sumner at [facility]. We would like to cover regular topics and build on low glycemic eating exercise mindful eating, using yoga and meditation along with deep breathing and connecting with friends and family. E. MASS PAT reviewed, Patient's current medications were reviewed and opinion was given on medication that can cause weight gain and can be substituted F. Patient was assessed for risk with obesity including and not limiting to atherosclerosis heart disease stroke kidney disease, restrictive lung disease, irritable bowel syndrome and overall mortality. Risk of developing prediabetes diabetes and metabolic syndrome was discussed G. Therapeutic plan: We have decided to make therapeutic plan which would include choosing wisely on calories restricting portion getting active, tracking weight, getting good quality sleep and working on time management H. Patient will follow up in 4 weeks for weight management Total time spent today was 60 minutes of which greater than 50% was spent on coordinating and counseling After consultation and careful review of medical history, this patient would benefit from Zepbound based off of the following criteria met: Patient is over the age of 18, has a BMI of 49.64. Additional comorbidities include hyperlipidemia, PCOS, prediabetes, SILVER on CPAP, Mary Lou's, asthma, POTS, seasonal allergies, and anxiety/depression. Patient has trialed other methods of weight loss including improving diet, exercise without success over three months. This medication is prescribed by or in consultation with a board certified obesity and weight management physician (Dr. Kyler Rollins or Dr. Remy Rollins). Case discussed with collaborating physician Valentina Rollins who reviewed the assessment and plan. Chart, medications, labs, vital signs reviewed. Dictation was accomplished with the use of Comic Wonder voice recognition software, prone to medical misidentifications and grammatical errors. This is unintentional and the practitioner does try to identify and correct these, but some could still be present. Please do not hesitate to contact practitioner for clarification. All questions answered to patients satisfaction. Patient verbalized understanding of diagnosis and treatments explained. To call sooner prior to next visit it any questions/concerns arise. 10/18/2024 POTS (postural orthostatic tachycardia syndrome) (ICD-10 - G90.A) Modesta is a 29-year-old female with history of obesity who presents to the office today for weight management consult. Medical history, labs, allergies, medications, and social history reviewed with the patient. Provided education on healthy diet and lifestyle which includes high-protein, low carbohydrate, high-fiber, and a variety of fruits and vegetables. Patient encouraged to exercise with emphasis on resistance training minimum 3 times per week to maintain muscle mass and cardio to burn fat. All patient questions answered. Patient will follow-up in 2 to 4 weeks for weight management. 10/18/2024: Weight 317 pounds, BMI 49.64. SECA scan completed today and interpreted with the patient. Patient reports several factors contributing to weight gain including increased stress/anxiety, family history of obesity, and PCOS. Has trialed weight watchers as well as Trulicity. Has been implementing increased walking as well as working in physical therapy over the previous several months to increase her strength. With concomitant history of SILVER on CPAP among other comorbidities she is a good candidate for Zepbound. We discussed proper use of the medication and potential side effects including but not limited to nausea, constipation, heartburn, or abdominal pain. Patient has no contraindications to GLP-1's. Advised that the medication requires a prior authorization and she will follow-up in office in 4 weeks. # PCOS: Reports concomitant history of prediabetes with recent hemoglobin A1c of 5.6%. Aware that PCOS may increase risk of insulin resistance. Continue metformin 500 mg 1 tablet daily. Continue follow-up with gynecology. # Depression/anxiety: Continue escitalopram 5 mg 1 tablet daily. Continue buspirone 15 mg daily. Continue methylphenidate 18 mg daily. Continue clonazepam 0.5 mg daily as needed for breakthrough anxiety. Will continue to monitor. # Asthma: Asymptomatic in office. Continue montelukast 10 mg once daily. Continue albuterol 2 puffs every 4 hours as needed for wheezing, cough, or shortness of breath. # SILVER: Continue nightly CPAP. # Seasonal allergies: Continue fluticasone 2 sprays in each nostril daily. Continue azelastine 2 sprays in each nostril daily as needed. # POTS: Continue regular hydration as well as supplementation with salt. Please follow-up with PCP. Blood pressure stable in office today. Patient was reassured and welcomed to the practice. We discussed that we stress a hollistic medical approach with emphasis on lifestyle modification. Patient was informed that a healthy lifestyle with exercise and good eating habits can help reduce their risk of medical complications. Patient is explained that obesity increases their risk of diabetes, cardiovascular disease, or organ damage. We spent a lot of time discussing the relationship between food, exercise, sleep, mental health and obesity. Patient was counseled on the importance EATING local, organic food when possible. Patient was educated on clean 15 and dirty dozen. I provided information about reading books called The Food Rules by Blaine Galvan and Eat Fat Get Lean by Dr Louie Patel. Self education is important in the journey for weight management. Patient was offered diagnostic testing/ SECA scale. We want to measure visceral adiposity, advanced body composition, adverse lipids, fatty acid balance, risk for heart disease and atherosclerosis, markers of inflammation and genetic susceptibility. Patient was counseled on weight management and was advised to lose weight using A. Meal Replacement Products Patient was educated on the replacement products called optifast. This is a good way of taking fixed amount of calories. It has been shown in studies to be ineffective weight management tool. This however has to be coupled with lifestyle intervention as well as laboratory data and EKG monitoring. It is impossible to know how a person will tolerate complete meal replacement. The side effects of meal replacement and weight loss could include syncopal attacks, dizziness, gallstones, potential cholecystectomy, possible heart attack and even . The benefits of meal replacement would be potential weight loss but no guarantees can be made. Meal replacement products are not covered by insurance. Once the patient has bought these products we cannot return them B. Lifestyle management which includes several strategies as below 1. Eat a low carbohydrate good fat good protein diet. Eliminate refined carbohydrates from the diet. Limit sugared beverages. Eat local organic when possible. Cook your own meals. Read food labels. Focus on healthy snacks. Portion control and food with low glycemic index 2. Exercise regularly. Try to get at least 6000 steps a day. Use a predominant to track activity level. Consider using apps like 7 minute excercise, Meituan.compal, lose it, stick as needed for self-monitoring and weight management. Consider group exercises. Consider hiring a epic trainer. Regular exercise is hayes to sustainable health and prevents as a buffer against weight regain 3. Sleep is most important for healing. Try to sleep at least 6-8 hours a night. A good quality sleep needs a sleep ritual with ideal room temperature of around 68. It might help to take a shower and have no electronics in the room and sleep in a very dark room without artificial light. Start sleep routine and get up early in the morning and go to bed on time. 4. Make a social connection. Surround yourself with positive people with positive energy. Connect with friends and family. 5. Get into the habit of meditating and mindfulness while doing everything. 6. Go outside and connect with nature. C. Prescription medications Patient was educated on the use of prescription medications for medical weight loss. This is a growing list and includes phentermine, Topamax,Qsymia, contrave, belviq and saxenda, wegovy etc. All prescription medications could have side effects including but not limited to kidney stones, seizure disorder cardiac arrhythmias heart attack pancreatitis, GI effects, Etc. Patient was encouraged to read the prescription insert and have coaching with their pharmacist and make an informed decision about taking medication and know that these medications are being prescribed with good intentions and we do not know how a patient would react to the medication. Some medications are FDA approved for weight loss and there is also off label use depending on patient's inability to afford medications in an attempt to lose weight D. Behavioral counseling was done to establish a relationship between food and an mood. Patient was provided information about local counseling and psychiatry and Dr Sumner at [facility]. We would like to cover regular topics and build on low glycemic eating exercise mindful eating, using yoga and meditation along with deep breathing and connecting with friends and family. E. MASS PAT reviewed, Patient's current medications were reviewed and opinion was given on medication that can cause weight gain and can be substituted F. Patient was assessed for risk with obesity including and not limiting to atherosclerosis heart disease stroke kidney disease, restrictive lung disease, irritable bowel syndrome and overall mortality. Risk of developing prediabetes diabetes and metabolic syndrome was discussed G. Therapeutic plan: We have decided to make therapeutic plan which would include choosing wisely on calories restricting portion getting active, tracking weight, getting good quality sleep and working on time management H. Patient will follow up in 4 weeks for weight management Total time spent today was 60 minutes of which greater than 50% was spent on coordinating and counseling After consultation and careful review of medical history, this patient would benefit from Zepbound based off of the following criteria met: Patient is over the age of 18, has a BMI of 49.64. Additional comorbidities include hyperlipidemia, PCOS, prediabetes, SILVER on CPAP, Mary Lou's, asthma, POTS, seasonal allergies, and anxiety/depression. Patient has trialed other methods of weight loss including improving diet, exercise without success over three months. This medication is prescribed by or in consultation with a board certified obesity and weight management physician (Dr. Kyler Rollins or Dr. Remy Rollins). Case discussed with collaborating physician Valentina Rollins who reviewed the assessment and plan. Chart, medications, labs, vital signs reviewed. Dictation was accomplished with the use of [employer] voice recognition software, prone to medical misidentifications and grammatical errors. This is unintentional and the practitioner does try to identify and correct these, but some could still be present. Please do not hesitate to contact practitioner for clarification. All questions answered to patients satisfaction. Patient verbalized understanding of diagnosis and treatments explained. To call sooner prior to next visit it any questions/concerns arise. 10/18/2024 Mild intermittent asthma without complication (ICD-10 - J45.20) Modesta is a 29-year-old female with history of obesity who presents to the office today for weight management consult. Medical history, labs, allergies, medications, and social history reviewed with the patient. Provided education on healthy diet and lifestyle which includes high-protein, low carbohydrate, high-fiber, and a variety of fruits and vegetables. Patient encouraged to exercise with emphasis on resistance training minimum 3 times per week to maintain muscle mass and cardio to burn fat. All patient questions answered. Patient will follow-up in 2 to 4 weeks for weight management. 10/18/2024: Weight 317 pounds, BMI 49.64. SECA scan completed today and interpreted with the patient. Patient reports several factors contributing to weight gain including increased stress/anxiety, family history of obesity, and PCOS. Has trialed weight watchers as well as Trulicity. Has been implementing increased walking as well as working in physical therapy over the previous several months to increase her strength. With concomitant history of SILVER on CPAP among other comorbidities she is a good candidate for Zepbound. We discussed proper use of the medication and potential side effects including but not limited to nausea, constipation, heartburn, or abdominal pain. Patient has no contraindications to GLP-1's. Advised that the medication requires a prior authorization and she will follow-up in office in 4 weeks. # PCOS: Reports concomitant history of prediabetes with recent hemoglobin A1c of 5.6%. Aware that PCOS may increase risk of insulin resistance. Continue metformin 500 mg 1 tablet daily. Continue follow-up with gynecology. # Depression/anxiety: Continue escitalopram 5 mg 1 tablet daily. Continue buspirone 15 mg daily. Continue methylphenidate 18 mg daily. Continue clonazepam 0.5 mg daily as needed for breakthrough anxiety. Will continue to monitor. # Asthma: Asymptomatic in office. Continue montelukast 10 mg once daily. Continue albuterol 2 puffs every 4 hours as needed for wheezing, cough, or shortness of breath. # SILVER: Continue nightly CPAP. # Seasonal allergies: Continue fluticasone 2 sprays in each nostril daily. Continue azelastine 2 sprays in each nostril daily as needed. # POTS: Continue regular hydration as well as supplementation with salt. Please follow-up with PCP. Blood pressure stable in office today. Patient was reassured and welcomed to the practice. We discussed that we stress a hollistic medical approach with emphasis on lifestyle modification. Patient was informed that a healthy lifestyle with exercise and good eating habits can help reduce their risk of medical complications. Patient is explained that obesity increases their risk of diabetes, cardiovascular disease, or organ damage. We spent a lot of time discussing the relationship between food, exercise, sleep, mental health and obesity. Patient was counseled on the importance EATING local, organic food when possible. Patient was educated on clean 15 and dirty dozen. I provided information about reading books called The Food Rules by Blaine Galvan and Eat Fat Get Lean by Dr Louie Patel. Self education is important in the journey for weight management. Patient was offered diagnostic testing/ SECA scale. We want to measure visceral adiposity, advanced body composition, adverse lipids, fatty acid balance, risk for heart disease and atherosclerosis, markers of inflammation and genetic susceptibility. Patient was counseled on weight management and was advised to lose weight using A. Meal Replacement Products Patient was educated on the replacement products called optifast. This is a good way of taking fixed amount of calories. It has been shown in studies to be ineffective weight management tool. This however has to be coupled with lifestyle intervention as well as laboratory data and EKG monitoring. It is impossible to know how a person will tolerate complete meal replacement. The side effects of meal replacement and weight loss could include syncopal attacks, dizziness, gallstones, potential cholecystectomy, possible heart attack and even . The benefits of meal replacement would be potential weight loss but no guarantees can be made. Meal replacement products are not covered by insurance. Once the patient has bought these products we cannot return them B. Lifestyle management which includes several strategies as below 1. Eat a low carbohydrate good fat good protein diet. Eliminate refined carbohydrates from the diet. Limit sugared beverages. Eat local organic when possible. Cook your own meals. Read food labels. Focus on healthy snacks. Portion control and food with low glycemic index 2. Exercise regularly. Try to get at least 6000 steps a day. Use a predominant to track activity level. Consider using apps like 7 minute excercise, myTwitpaypal, lose it, stick as needed for self-monitoring and weight management. Consider group exercises. Consider hiring a epic trainer. Regular exercise is hayes to sustainable health and prevents as a buffer against weight regain 3. Sleep is most important for healing. Try to sleep at least 6-8 hours a night. A good quality sleep needs a sleep ritual with ideal room temperature of around 68. It might help to take a shower and have no electronics in the room and sleep in a very dark room without artificial light. Start sleep routine and get up early in the morning and go to bed on time. 4. Make a social connection. Surround yourself with positive people with positive energy. Connect with friends and family. 5. Get into the habit of meditating and mindfulness while doing everything. 6. Go outside and connect with nature. C. Prescription medications Patient was educated on the use of prescription medications for medical weight loss. This is a growing list and includes phentermine, Topamax,Qsymia, contrave, belviq and saxenda, wegovy etc. All prescription medications could have side effects including but not limited to kidney stones, seizure disorder cardiac arrhythmias heart attack pancreatitis, GI effects, Etc. Patient was encouraged to read the prescription insert and have coaching with their pharmacist and make an informed decision about taking medication and know that these medications are being prescribed with good intentions and we do not know how a patient would react to the medication. Some medications are FDA approved for weight loss and there is also off label use depending on patient's inability to afford medications in an attempt to lose weight D. Behavioral counseling was done to establish a relationship between food and an mood. Patient was provided information about local counseling and psychiatry and Dr Sumner at [facility]. We would like to cover regular topics and build on low glycemic eating exercise mindful eating, using yoga and meditation along with deep breathing and connecting with friends and family. E. MASS PAT reviewed, Patient's current medications were reviewed and opinion was given on medication that can cause weight gain and can be substituted F. Patient was assessed for risk with obesity including and not limiting to atherosclerosis heart disease stroke kidney disease, restrictive lung disease, irritable bowel syndrome and overall mortality. Risk of developing prediabetes diabetes and metabolic syndrome was discussed G. Therapeutic plan: We have decided to make therapeutic plan which would include choosing wisely on calories restricting portion getting active, tracking weight, getting good quality sleep and working on time management H. Patient will follow up in 4 weeks for weight management Total time spent today was 60 minutes of which greater than 50% was spent on coordinating and counseling After consultation and careful review of medical history, this patient would benefit from Zepbound based off of the following criteria met: Patient is over the age of 18, has a BMI of 49.64. Additional comorbidities include hyperlipidemia, PCOS, prediabetes, SILVER on CPAP, Mary Lou's, asthma, POTS, seasonal allergies, and anxiety/depression. Patient has trialed other methods of weight loss including improving diet, exercise without success over three months. This medication is prescribed by or in consultation with a board certified obesity and weight management physician (Dr. Kyler Rollins or Dr. Remy Rollins). Case discussed with collaborating physician Valentina Rollins who reviewed the assessment and plan. Chart, medications, labs, vital signs reviewed. Dictation was accomplished with the use of [employer] voice recognition software, prone to medical misidentifications and grammatical errors. This is unintentional and the practitioner does try to identify and correct these, but some could still be present. Please do not hesitate to contact practitioner for clarification. All questions answered to patients satisfaction. Patient verbalized understanding of diagnosis and treatments explained. To call sooner prior to next visit it any questions/concerns arise. 10/18/2024 Seasonal allergies (ICD-10 - J30.2) Modesta is a 29-year-old female with history of obesity who presents to the office today for weight management consult. Medical history, labs, allergies, medications, and social history reviewed with the patient. Provided education on healthy diet and lifestyle which includes high-protein, low carbohydrate, high-fiber, and a variety of fruits and vegetables. Patient encouraged to exercise with emphasis on resistance training minimum 3 times per week to maintain muscle mass and cardio to burn fat. All patient questions answered. Patient will follow-up in 2 to 4 weeks for weight management. 10/18/2024: Weight 317 pounds, BMI 49.64. SECA scan completed today and interpreted with the patient. Patient reports several factors contributing to weight gain including increased stress/anxiety, family history of obesity, and PCOS. Has trialed weight watchers as well as Trulicity. Has been implementing increased walking as well as working in physical therapy over the previous several months to increase her strength. With concomitant history of SILVER on CPAP among other comorbidities she is a good candidate for Zepbound. We discussed proper use of the medication and potential side effects including but not limited to nausea, constipation, heartburn, or abdominal pain. Patient has no contraindications to GLP-1's. Advised that the medication requires a prior authorization and she will follow-up in office in 4 weeks. # PCOS: Reports concomitant history of prediabetes with recent hemoglobin A1c of 5.6%. Aware that PCOS may increase risk of insulin resistance. Continue metformin 500 mg 1 tablet daily. Continue follow-up with gynecology. # Depression/anxiety: Continue escitalopram 5 mg 1 tablet daily. Continue buspirone 15 mg daily. Continue methylphenidate 18 mg daily. Continue clonazepam 0.5 mg daily as needed for breakthrough anxiety. Will continue to monitor. # Asthma: Asymptomatic in office. Continue montelukast 10 mg once daily. Continue albuterol 2 puffs every 4 hours as needed for wheezing, cough, or shortness of breath. # SILVER: Continue nightly CPAP. # Seasonal allergies: Continue fluticasone 2 sprays in each nostril daily. Continue azelastine 2 sprays in each nostril daily as needed. # POTS: Continue regular hydration as well as supplementation with salt. Please follow-up with PCP. Blood pressure stable in office today. Patient was reassured and welcomed to the practice. We discussed that we stress a hollistic medical approach with emphasis on lifestyle modification. Patient was informed that a healthy lifestyle with exercise and good eating habits can help reduce their risk of medical complications. Patient is explained that obesity increases their risk of diabetes, cardiovascular disease, or organ damage. We spent a lot of time discussing the relationship between food, exercise, sleep, mental health and obesity. Patient was counseled on the importance EATING local, organic food when possible. Patient was educated on clean 15 and dirty dozen. I provided information about reading books called The Food Rules by Blaine Galvan and Eat Fat Get Lean by Dr Louie Patel. Self education is important in the journey for weight management. Patient was offered diagnostic testing/ SECA scale. We want to measure visceral adiposity, advanced body composition, adverse lipids, fatty acid balance, risk for heart disease and atherosclerosis, markers of inflammation and genetic susceptibility. Patient was counseled on weight management and was advised to lose weight using A. Meal Replacement Products Patient was educated on the replacement products called optifast. This is a good way of taking fixed amount of calories. It has been shown in studies to be ineffective weight management tool. This however has to be coupled with lifestyle intervention as well as laboratory data and EKG monitoring. It is impossible to know how a person will tolerate complete meal replacement. The side effects of meal replacement and weight loss could include syncopal attacks, dizziness, gallstones, potential cholecystectomy, possible heart attack and even . The benefits of meal replacement would be potential weight loss but no guarantees can be made. Meal replacement products are not covered by insurance. Once the patient has bought these products we cannot return them B. Lifestyle management which includes several strategies as below 1. Eat a low carbohydrate good fat good protein diet. Eliminate refined carbohydrates from the diet. Limit sugared beverages. Eat local organic when possible. Cook your own meals. Read food labels. Focus on healthy snacks. Portion control and food with low glycemic index 2. Exercise regularly. Try to get at least 6000 steps a day. Use a predominant to track activity level. Consider using apps like 7 minute excercise, myTwitpaypal, lose it, stick as needed for self-monitoring and weight management. Consider group exercises. Consider hiring a epic trainer. Regular exercise is hayes to sustainable health and prevents as a buffer against weight regain 3. Sleep is most important for healing. Try to sleep at least 6-8 hours a night. A good quality sleep needs a sleep ritual with ideal room temperature of around 68. It might help to take a shower and have no electronics in the room and sleep in a very dark room without artificial light. Start sleep routine and get up early in the morning and go to bed on time. 4. Make a social connection. Surround yourself with positive people with positive energy. Connect with friends and family. 5. Get into the habit of meditating and mindfulness while doing everything. 6. Go outside and connect with nature. C. Prescription medications Patient was educated on the use of prescription medications for medical weight loss. This is a growing list and includes phentermine, Topamax,Qsymia, contrave, belviq and saxenda, wegovy etc. All prescription medications could have side effects including but not limited to kidney stones, seizure disorder cardiac arrhythmias heart attack pancreatitis, GI effects, Etc. Patient was encouraged to read the prescription insert and have coaching with their pharmacist and make an informed decision about taking medication and know that these medications are being prescribed with good intentions and we do not know how a patient would react to the medication. Some medications are FDA approved for weight loss and there is also off label use depending on patient's inability to afford medications in an attempt to lose weight D. Behavioral counseling was done to establish a relationship between food and an mood. Patient was provided information about local counseling and psychiatry and Dr Sumner at [facility]. We would like to cover regular topics and build on low glycemic eating exercise mindful eating, using yoga and meditation along with deep breathing and connecting with friends and family. E. MASS PAT reviewed, Patient's current medications were reviewed and opinion was given on medication that can cause weight gain and can be substituted F. Patient was assessed for risk with obesity including and not limiting to atherosclerosis heart disease stroke kidney disease, restrictive lung disease, irritable bowel syndrome and overall mortality. Risk of developing prediabetes diabetes and metabolic syndrome was discussed G. Therapeutic plan: We have decided to make therapeutic plan which would include choosing wisely on calories restricting portion getting active, tracking weight, getting good quality sleep and working on time management H. Patient will follow up in 4 weeks for weight management Total time spent today was 60 minutes of which greater than 50% was spent on coordinating and counseling After consultation and careful review of medical history, this patient would benefit from Zepbound based off of the following criteria met: Patient is over the age of 17, has a BMI of 49.64. Additional comorbidities include hyperlipidemia, PCOS, prediabetes, SILVER on CPAP, Mary Lou's, asthma, POTS, seasonal allergies, and anxiety/depression. Patient has trialed other methods of weight loss including improving diet, exercise without success over three months. This medication is prescribed by or in consultation with a board certified obesity and weight management physician (Dr. Kyler Rollins or Dr. Remy Rollins). Case discussed with collaborating physician Valentina Rollins who reviewed the assessment and plan. Chart, medications, labs, vital signs reviewed. Dictation was accomplished with the use of [employer] Wonder voice recognition software, prone to medical misidentifications and grammatical errors. This is unintentional and the practitioner does try to identify and correct these, but some could still be present. Please do not hesitate to contact practitioner for clarification. All questions answered to patients satisfaction. Patient verbalized understanding of diagnosis and treatments explained. To call sooner prior to next visit it any questions/concerns arise. Plan Of Treatment No Information Insurance Providers Payer Name Payer Address Payer Phone Subscriber Number Group Number Insured Name Patient Relationship to Insured Coverage Start Date Coverage End Date [facility] [address] [facility] [place] [address] [id number] ANTHONYDEBRA MATAILY Self - patient is the insured 3 Medical (General) History Medical History History ICD Code pcos hashimotos thyroiditis asthma seasonal allergies thyroid disease anemia gallbladder disease hemorrhoids pneumonia chest pain Surgical History Surgery Date(Month/Year) appendix removal gallbladder
--- OUTSIDE RECORDS SUMMARY | 2025-06-30 02:36 | XMS_ITS | Patient Health Record ---
Author Organization [facility] Address [address] [place] [address] Care Team Providers Care Domestic Cleaner Name Role Phone Vicky Orr MDbeth Primary Care Provider Un available Ilana Alley Unavailable [phone] Allergies Allergen (clinical drug ingredient) Drug/Non Drug Allergy documented on EMR Reaction Allergy Type Onset Date Status amoxicillin Amoxicillin Unknown Drug Allergy Act magui Reason For Referral No Information Medications Medication SIG (Take, Route, Fr equency, Duration) Notes Start Date End Date Status Omeprazole Active Azelastine HCl Activ e busPIRone HCl Active Levalbuterol HCl Act magui clonazePAM 0.5 MG 1 tablet Orally Once a day Active Escitalopram Oxalate Active Montelukast Sodium A ctive Social History Tobacco Use: Social History Observation Description Date Details (start date - stop date) Never Smoker NA - NA Tobacco Use/Smoking Question Answer Notes Are you a: nonsmoker Additional Findings: Tobacco Non-User Current no n-smoker Alcohol Screen Question Answer Notes Did you have a drink containing alcohol in the p ast year? No Points 0 Interpretation Negative Tobacco use other than smoking: Question Answer Notes Are you an other tobacco user? No Problems Problem Type SNOMED Code ICD Code Onset Dates Problem Status W/U Status Risk Notes Problem Plantar wart (97493317) Plantar wart (B07.0) Active confirmed Plan Of Treatment Pending Test Test Name Order Date X ray : Foot, right 3V 05/07/2024 Insurance Providers Payer Name Payer Address Payer Phone Subscriber Number Group Number Insured Name Patient Relationship to Insured Coverage Start Date Coverage End Date [facility] [address] [place] [address] [phone] [id number] Modesta Maza Self - patient is the insured 3 Medical (General) History Medical History History ICD Code Anemia Anxiety asthma covid-19 Depression Gall bladder problems Hepatitis A Psoriasis/eczema Reflux ( GERD) sinusitis thyroid Sleep apnea PCOS Hashimotos thyroiditis FBS Surgical History Surgery Date(Month/Year) appendectomy 2005 Gall bladder removal 2018 Hospitalization History Reason Date(Month/Year) [facility] for wart 02/2024
--- OUTSIDE RECORDS SUMMARY | 2025-06-30 02:36 | XMS_ITS | Patient Health Record ---
Author Organization [facility] Address [address] [place] [address] [address] [place] [address] Support Name Relationship Address Phone Nasir Crowder Emergency Contact Unknown [phone] Modesta Maza Guarantor Unknown [phone] Allergies Allergen (clinical drug ingredient) Drug/Non Drug Allergy documented on EMR Reaction Allergy Type Onset Date Status amoxicillin amoxicillin rash Drug Allergy Act magui Reason For Referral No Information Medications Medication SIG (Take, Route, Frequency, Duration) Notes Start Date End Date Status KlonoPIN 0.5 mg tablet 1 tab(s) orally 3 times a day Active Lexapro 5 mg tablet 2 tab(s) orally once a day Active montelukast 5 mg tablet, chewable 1 tab(s) chewed once a day *Reorder from [employer] for eRx and Interaction Alerts* Active Effexor XR 150 mg capsule, extended release 1 cap(s) orally once a day 185 *Pick strength-form from [employer] for eRX* Active Social History Social History Additional Details Category Social Info Options Details Migrated Social History Migrated Social History (Alcohol smart form): Did you have a drink containing alcohol in the past year?: Yes, How often did you have a drink containing alcohol in the past year?: Monthly or less (1 point), How many drinks did you have on a typical day when you were drinking in the past year?: 1 or 2 (0 points), How often did you have six or more drinks on one occasion in the past year?: Never (0 points), Points: 1, Interpretation: Negative (Caffeine): decaf only (Dental exams:): looking for one (Domestic Violence): states she feels safe in her relationship, at work and at home. No past DV reported. (Exercise:): yoga, would like to have a gym membership, walking a lit - more than 10k steps a day (Marital status): Relationship- 6 months (Recreational drug use:): none (Seat Belt Use): yes (Self Breast Exam): None (Sexual history): Had sex in the past 12 months (vaginal, oral, or anal) Yes, Use protection? No, with non bianary partner, LMP: 09/11/2018, Have you ever had an STD? 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 Problems Problem Type SNOMED Code ICD Code Onset Dates Problem Status W/U Status Risk Notes Problem Dysmenorrhea (129296865) Dysmenorrhea (N94.6) Active confirmed Problem Premenstrual tension syndrome (53074627) PMDD (premenstrual dysphoric disorder) (F32.81) Active confirmed Plan Of Treatment No Information Insurance Providers Payer Name Payer Address Payer Phone Subscriber Number Group Number Insured Name Patient Relationship to Insured Coverage Start Date Coverage End Date [facility] [address] [place] [address] [id number] Arnulfo Maza Child - Insured has Financial Responsibility Medical (General) History Medical History History ICD Code Asthma Depression/Anxiety ADHD OCD Surgical History Surgery Date(Month/Year) appendectomy 2005 [place] [facility] 2013 Mole Removal 2012 Hospitalization History Reason Date(Month/Year) Hep A, Bartholomew, Jaundice 2014
[2025-06-30 02:37] VITALS: BP 112/70; PULSE 70; RESP 16; TEMP 36.4; O2SAT 97
[2025-06-30 03:26] LABS: Resp Syncy Virus RNA Qual PCR NEGATIVE (Negative); SARS COV2 PCR INHOUSE NEGATIVE (Negative)
[2025-06-30 03:56] VITALS: BP 115/74; PULSE 66; RESP 16; TEMP 36.4; O2SAT 97
[2025-06-30] MEDS: Magnesium Hydrox/Alum Hydrox 30 ML ORAL.SUSP PO (03:58)
[2025-06-30] MEDS: Lidocaine HCl Viscous 2 % 15 ML SOLUTION MUCOUS MEM (03:58)
[2025-06-30 04:05] VITALS: BP 115/74; PULSE 66; RESP 16; TEMP 36.4; O2SAT 97
== END 2025-06-30 04:05 | disposition home or self-care (01) ==
PROVIDERS: Physician Assistant Medical; Emergency Provider Emergency Medicine; PCP Pediatrics
DX: K21.00 Gastro-esophageal reflux disease with esophagitis, without bleeding (principal); R10.13 Epigastric pain; R07.9 Chest pain, unspecified; R94.31 Abnormal electrocardiogram [ECG] [EKG]; Z03.818 Encounter for observation for suspected exposure to other biological agents ruled out
CPT/HCPCS: 36415; 71046; 80053; 83690; 83735; 84484; 84702; 85025; 87637; 93005; 99283; 99285

== ENCOUNTER → 2025-06-29 20:30 | Outpatient (BNV) | payer OTHER, SELFPAY | PROVIDERS: Emergency Provider Emergency Medicine; PCP Pediatrics; Visit Provider Internal Medicine Cardiovascular Disease | DX: R94.31 Abnormal electrocardiogram [ECG] [EKG] (principal); R07.9 Chest pain, unspecified | CPT/HCPCS: 93010 ==

== ENCOUNTER → 2025-06-29 20:47 | Outpatient (BNV) | payer OTHER, SELFPAY | PROVIDERS: PCP Pediatrics; Visit Provider Radiology Diagnostic Radiology | DX: R07.9 Chest pain, unspecified (principal) | CPT/HCPCS: 71046 ==